=== PATIENT | female | born 1945 | race Hispanic/Latino ===

== ENCOUNTER 2018-04-15 11:30 | Inpatient (IN) | payer MEDICAID, MEDICARE ==
[2018-04-15] MEDS ORDERED: BENADRYL IV ONE (12:33)
[2018-04-15] MEDS ORDERED: REGLAN IV ONE (12:33)
[2018-04-15] MEDS ORDERED: TYLENOL PO ONE (12:33)
--- NOTE | 2018-04-15 12:35 | Emergency Department Report ---
ED Headache HPI - General Chief Complaint: Headache Stated Complaint: SEVERE HEADACHE Time Seen by Provider: 04/15/18 12:14 Source: patient, RN notes reviewed Exam Limitations: no limitations - History of Present Illness Initial Comments: This is a 72-year-old female who is unknown to this provider previously. 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 nAton Chan. Patient presents to the ER with a complaint of headache, dizziness and near syncope. Her headache started 5 days ago, and it was bifrontal and bitemporal. The headache radiates to the occipital region. It is not sudden or thunderclap in nature, it did not reach maximal intensity within an hour, and it is not the most intense or worse headache of her life. She denies claudication, and pain with chewing, and denies change in visual acuity. She denies neck pain, chest pain, abdominal pain, shortness of breath, urinary symptoms. She admits to intermittent tinnitus, although cannot describe which side/ear she is experiencing it in. She also describes sensation of almost passing out which she cannot further describe, and also denies DVT, pulmonary embolus risk factors. Timing/Duration: waxing and waning, other (5 days) Quality: moderate Head Injury Location: frontal, temporal Recent Head Trauma: no recent headache/trauma, occasional headaches Associated Symptoms: loss of consciousness, vision changes, weakness. denies: confusion, fatigue, facial pain, fever/chills, flushing, nausea/vomiting, nasal congestion, nasal drainage, numbness in legs/feet, rash, seizures, sinus infection, stiff neck Allergies/Adverse Reactions: Allergies No Known Allergies Allergy (Verified 07/24/13 19:05) Home Medications: Ambulatory Orders Aspirin [Aspirin BABY CHEW TAB] 81 mg PO DAILY 07/28/13 Olmesartan (Nf) [Benicar] 20 mg PO QDAY 07/28/13 Chlorthalidone [Thalitone] 25 mg PO QDAY 04/15/18 Diltiazem HCl [Diltiazem ER] 240 mg PO QDAY 04/15/18 ED Review of Systems ROS: Stated complaint: SEVERE HEADACHE Other details as noted in HPI Constitutional: denies: fever Eyes: eye discharge. denies: eye pain ENT: denies: epistaxis Respiratory: denies: shortness of breath Cardiovascular: syncope. denies: chest pain Gastrointestinal: denies: abdominal pain Genitourinary: denies: urgency Neurological: weakness Psychiatric: anxiety ED Past Medical Hx - Past Medical History Previous Medical History?: Yes Hx Hypertension: Yes Hx Psychiatric Treatment: Yes Hx HIV: No Additional medical history: high cholesterol - Surgical History Past Surgical History?: Yes Additional Surgical History: Cardiac cath x 2, Tubal Ligation - Social History Smoking Status: Never Smoker Substance Use Type: Alcohol - Medications Home Medications: Home Medications Medication Instructions Recorded Confirmed Last Taken Type Aspirin [Aspirin BABY CHEW TAB] 81 mg PO DAILY 07/28/13 04/15/18 07/13/17 History Olmesartan (Nf) [Benicar] 20 mg PO QDAY 07/28/13 04/15/18 07/13/17 History Chlorthalidone [Thalitone] 25 mg PO QDAY 04/15/18 04/15/18 Unknown History Diltiazem HCl [Diltiazem ER] 240 mg PO QDAY 04/15/18 04/15/18 Unknown History ED Physical Exam - General Limitations: No Limitations General appearance: alert, in no apparent distress - Head Head exam: Present: atraumatic, normocephalic - Eye Eye exam: Present: normal appearance, EOMI, other (visual acuity intact to finger counting, color perception, reading at a close distance). Absent: nystagmus - ENT ENT exam: Present: normal exam, normal orophraynx, mucous membranes moist, TM's normal bilaterally, normal external ear exam, other (there is no mastoid tenderness.) - Neck Neck exam: Present: normal inspection, full ROM. Absent: tenderness, meningismus - Respiratory Respiratory exam: Present: normal lung sounds bilaterally. Absent: respiratory distress - Cardiovascular Cardiovascular Exam: Present: regular rate, normal rhythm, normal heart sounds. Absent: bradycardia, tachycardia, irregular rhythm, systolic murmur, diastolic murmur, rubs, gallop - GI/Abdominal GI/Abdominal exam: Present: soft, normal bowel sounds. Absent: distended, tenderness, guarding, rebound, rigid, pulsatile mass - Extremities Exam Extremities exam: Present: normal inspection, full ROM, normal capillary refill. Absent: pedal edema, joint swelling, calf tenderness - Back Exam Back exam: Present: normal inspection, full ROM. Absent: tenderness, CVA tenderness (R), paraspinal tenderness, vertebral tenderness - Neurological Exam Neurological exam: Present: alert (there is no temporal tenderness. There is no jaw claudication), oriented X3 (there is no past pointing. Normal heel-to- hill. Negative pronator drift.), CN II-XII intact, other (Extraocular movements intact. Tongue midline. No facial droop. Facial sensation intact to light touch in the V1, V2, V3 distribution bilaterally. 5 and 5 strength in 4 extremities.. Sensation is intact to light touch in 4 extremities.). Absent : motor sensory deficit - Psychiatric Psychiatric exam: Present: normal affect, normal mood - Skin Skin exam: Present: warm, dry, intact, normal color. Absent: rash ED Course Vital Signs 04/15/18 04/15/18 04/15/18 11:58 12:00 12:10 Temperature 98.1 F Pulse Rate 61 67 73 Respiratory 16 14 15 Rate Blood Pressure 178/73 172/77 Blood Pressure 172/77 [Left] O2 Sat by Pulse 98 97 98 Oximetry 04/15/18 04/15/18 04/15/18 12:15 12:30 12:45 Temperature Pulse Rate 73 75 76 Respiratory 13 15 9 L Rate Blood Pressure 177/87 171/76 193/80 Blood Pressure [Left] O2 Sat by Pulse 98 98 98 Oximetry 04/15/18 04/15/18 04/15/18 13:00 13:10 13:15 Temperature Pulse Rate 65 76 Respiratory 10 L 18 11 L Rate Blood Pressure 193/80 193/80 Blood Pressure [Left] O2 Sat by Pulse 99 99 Oximetry 04/15/18 04/15/18 04/15/18 13:30 13:45 14:00 Temperature Pulse Rate 65 68 76 Respiratory 14 16 10 L Rate Blood Pressure 171/72 169/68 169/68 Blood Pressure [Left] O2 Sat by Pulse 92 95 97 Oximetry 04/15/18 04/15/18 04/15/18 14:10 14:15 14:30 Temperature Pulse Rate 75 72 Respiratory 16 20 6 L Rate Blood Pressure 145/80 155/61 Blood Pressure [Left] O2 Sat by Pulse 97 96 Oximetry 04/15/18 14:45 Temperature Pulse Rate 65 Respiratory 11 L Rate Blood Pressure 147/66 Blood Pressure [Left] O2 Sat by Pulse 95 Oximetry ED Medical Decision Making - Lab Data Result diagrams: 04/15/18 12:52 04/15/18 12:52 - EKG Data -: EKG Interpreted by Me EKG shows normal: sinus rhythm - EKG Data When compared to previous EKG there are: previous EKG unavailable 04/15/18 17:34 Sinus, 67 bpm, borderline left axis deviation, poor R-wave progression, borderline high left ventricular voltage, QTC within normal limits, abnormal EKG , not a STEMI - Radiology Data Radiology results: report reviewed, image reviewed Noncontrast CT scan of the brain is negative for acute disease - Medical Decision Making Differential diagnosis, including but not limited to: Migraine headache, tension headache, cluster headache, orthostasis, vagal event, structural cardiac disease, acute coronary syndrome, electrolyte derangement, transient ischemic attack Assessment and plan: 72-year-old female with headache that is not historically consistent or suggestive of hemorrhagic stroke, subarachnoid hemorrhage, or temporal arteritis, with concomitant nonspecific blurry vision, dizziness, and near syncope. Symptoms have been present for over 4 days, and therefore not a TPA candidate. She has an NIH score of 0, and does not require emergent endovascular imaging at this time. The headache will be treated symptomatically, she has no DVT or pulmonary embolus risk factors, however given her advanced age and nonspecific symptoms, she will be admitted for further evaluation and management. Case was presented to the Hospital physician, Dr. Moralez, who accepted the patient to his service. Critical care attestation.: If time is entered above; I have spent that time in minutes in the direct care of this critically ill patient, excluding procedure time. ED Disposition Clinical Impression: Near syncope, Dizziness, Headache Disposition: 09 OP ADMIT IP TO THIS HOSP Is pt being admited?: Yes Does the pt Need Aspirin: Yes Condition: Good Time of Disposition: 14:30 (presented to Dr Moralez) - Assessment Assessment Interval: Baseline - Level of Consciousness 1a. Level of Consciousness: alert - LOC Questions 1b. LOC Questions: answers correctly - LOC Command 1c. LOC Commands: performs tasks correctly - Best Gaze 2. Best Gaze: normal - Visual 3. Visual: no visual loss - Facial Palsy 4. Facial Palsy: normal symmetrical movement - Motor Arm 5b. Motor Arm Right: no drift 5a. Motor Arm Left: no drift - Motor Leg 6a. Motor Leg Left: no drift 6b. Motor Leg Right: no drift - Limb Ataxia 7. Limb Ataxia: absent - Sensory 8. Sensory: normal - Best Language 9. Best Language: no aphasia - Dysarthria 10. Dysarthria: normal - Extinction and Inattention 11. Extinction/Inattention: no abnormality - Scoring Total Score: 0 Stroke Severity: No Stroke Symptoms
[2018-04-15 13:13] LABS: Basophils # (Auto) 0.1 K/mm3 (0.0-0.1); Basophils % (Auto) 0.9 % (0.0-1.8); Eosinophils # (Auto) 0.1 K/mm3 (0.0-0.4); Eosinophils % (Auto) 0.7 % (0.0-4.3); Hematocrit 42.4 % (30.3-42.9); Hemoglobin 14.1 gm/dl (10.1-14.3); Lymphocytes # (Auto) 1.5 K/mm3 (1.2-5.4); Lymphocytes % (Auto) 18.8 % (13.4-35.0); Mean Corpuscular HGB Conc 33 % (30-34); Mean Corpuscular Hemoglobin 30 pg (28-32); Mean Corpuscular Volume 89 fl (79-97); Monocytes # (Auto) 0.7 K/mm3 (0.0-0.8); Monocytes % (Auto) 8.9 % (0.0-7.3); Platelet Count 232 K/mm3 (140-440); Red Blood Count 4.76 M/mm3 (3.65-5.03); Red Cell Distribution Width 15.2 % (13.2-15.2)
[2018-04-15 13:22] LABS: INR 0.84 (0.87-1.13)
[2018-04-15 13:23] LABS: Partial Thromboplastin Time 25.4 Sec. (24.2-36.6); Thrombin Time 16.2 Sec. (15.1-19.6)
[2018-04-15 13:27] LABS: Creatine Kinase MB 2.6 ng/mL (0.0-4.0)
[2018-04-15 13:28] LABS: Alanine Aminotransferase 21 units/L (7-56); Albumin 4.5 g/dL (3.9-5); BUN/Creatinine Ratio 20; Blood Urea Nitrogen 14 mg/dL (7-17); Calcium 9.2 mg/dL (8.4-10.2); Hemolysis Index 2
--- NOTE | 2018-04-15 14:00 | Cat Scan Report ---
CT HEAD WITHOUT CONTRAST: HISTORY: Stroke symptoms. TECHNIQUE: Sequential 2.5mm CT images. COMPARISON: none. FINDINGS: Cerebral Parenchyma: Within normal limits. Cerebellum: Within normal limits. Brainstem: Within normal limits. Ventricles: Normal. Sella: Normal. Extra-axial spaces: Normal. Basal Cisterns: Normal. Intracranial Hemorrhage: None. Midline Shift: None. Calvarium: Normal. Sinuses: Normal. Mastoid Air Cells: Normal. Visualized Orbits: Normal. IMPRESSION: Cranial CT scan within normal limits.
[2018-04-15] MEDS ORDERED: BABY ASPIRIN PO ONE (14:15)
--- NOTE | 2018-04-15 15:49 | History and Physical Report ---
History of Present Illness Date of examination: 04/15/18 Date of admission: 04/15/2018 Chief complaint: Chief complaint: Severe dizziness Nearly passed out few hours ago History of present illness: History of Present Illness: 72-year-old with history of hypertension, hyperlipidemia , asthma and depression comes in for severe dizziness of one day duration. Also nearly passed out this afternoon. Did not lose consciousness. No fever no chills no shortness of breath. No focal deficits. No chest pain. No recent travel. Past Medical History Previous Medical History?: Yes Hx Hypertension: Yes Hx Psychiatric Treatment: Yes high cholesterol And GERD Surgical History Past Surgical History?: Yes Additional Surgical History: Cardiac cath x 2, Tubal Ligation Social History Smoking Status: Never Smoker Substance Use Type: Alcohol Family history HTN Medications Home Medications: Home Medications Medication Instructions Recorded Confirmed Last Taken Type Albuterol Sulfate [Ventolin HFA] 2 puff IH Q4H PRN #1 [email or web address] 07/28/13 Unknown Rx Aspirin [Aspirin BABY CHEW TAB] 81 mg PO DAILY 07/28/13 07/13/17 07/13/17 History Fluticasone Propionate [Flonase] 16 gm NS PRN 07/28/13 07/13/17 Unknown History Olmesartan (Nf) [Benicar] 20 mg PO QDAY 07/28/13 07/13/17 07/13/17 History Triamter/Hctz 37.5-25 mg 1 tab PO QDAY 07/28/13 07/13/17 07/13/17 History [Maxzide-25] Multivit with Calcium,Iron,Min 1 each PO DAILY 07/13/17 07/13/17 07/13/17 History [Multiple Vitamins For Women] Pantoprazole [Protonix TAB] 40 mg PO QDAY #30 tablet 07/14/17 Unknown Rx oxyCODONE /ACETAMINOPHEN [Percocet 1 tab PO Q6H PRN #12 tablet 07/14/17 Unknown Rx 5/325 mg] Medications and Allergies Allergies Allergy/AdvReac Type Severity Reaction Status Date / Time No Known Allergies Allergy Verified 07/24/13 19:05 Home Medications Medication Instructions Recorded Confirmed Last Taken Type Aspirin [Aspirin BABY CHEW TAB] 81 mg PO DAILY 07/28/13 04/15/18 07/13/17 History Olmesartan (Nf) [Benicar] 20 mg PO QDAY 07/28/13 04/15/18 07/13/17 History Chlorthalidone [Thalitone] 25 mg PO QDAY 04/15/18 04/15/18 Unknown History Diltiazem HCl [Diltiazem ER] 240 mg PO QDAY 04/15/18 04/15/18 Unknown History Exam - Constitutional Vitals: Temp Pulse Resp BP Pulse Ox 98.1 F 65 11 L 147/66 95 04/15/18 12:10 04/15/18 14:45 04/15/18 14:45 04/15/18 14:45 04/15/18 14:45 General appearance: Present: no acute distress, well-nourished - EENT Eyes: Present: PERRL ENT: hearing intact, clear oral mucosa - Neck Neck: Present: supple, normal ROM - Respiratory Respiratory effort: normal Respiratory: bilateral: CTA - Cardiovascular Heart rate: 67 Rhythm: regular Heart Sounds: Present: S1 & S2. Absent: rub, click - Extremities Extremities: no ischemia, pulses intact, pulses symmetrical, No edema Peripheral Pulses: within normal limits - Abdominal General gastrointestinal: Present: soft, non-tender, non-distended, normal bowel sounds Female genitourinary: Present: normal - Rectal Rectal Exam: deferred - Integumentary Integumentary: Present: clear, warm, dry - Musculoskeletal Musculoskeletal: gait normal, strength equal bilaterally - Psychiatric Psychiatric: appropriate mood/affect, intact judgment & insight - Neurologic Neurologic: CNII-XII intact, moves all extremities - Allied Health Allied health notes reviewed: nursing, case management Results - Labs CBC & Chem 7: 04/15/18 12:52 04/15/18 12:52 Labs: Laboratory Last Values WBC 8.0 K/mm3 (4.5-11.0) 04/15/18 12:52 RBC 4.76 M/mm3 (3.65-5.03) 04/15/18 12:52 Hgb 14.1 gm/dl (10.1-14.3) 04/15/18 12:52 Hct 42.4 % (30.3-42.9) 04/15/18 12:52 MCV 89 fl (79-97) 04/15/18 12:52 MCH 30 pg (28-32) 04/15/18 12:52 MCHC 33 % (30-34) 04/15/18 12:52 RDW 15.2 % (13.2-15.2) 04/15/18 12:52 Plt Count 232 K/mm3 (140-440) 04/15/18 12:52 Lymph % (Auto) 18.8 % (13.4-35.0) 04/15/18 12:52 [place] % (Auto) 8.9 % (0.0-7.3) H 04/15/18 12:52 Eos % (Auto) 0.7 % (0.0-4.3) 04/15/18 12:52 Baso % (Auto) 0.9 % (0.0-1.8) 04/15/18 12:52 Lymph # 1.5 K/mm3 (1.2-5.4) 04/15/18 12:52 [place] # 0.7 K/mm3 (0.0-0.8) 04/15/18 12:52 Eos # 0.1 K/mm3 (0.0-0.4) 04/15/18 12:52 Baso # 0.1 K/mm3 (0.0-0.1) 04/15/18 12:52 Seg Neutrophils % 70.7 % (40.0-70.0) H 04/15/18 12:52 Seg Neutrophils # 5.6 K/mm3 (1.8-7.7) 04/15/18 12:52 PT 11.9 Sec. (12.2-14.9) L 04/15/18 12:52 INR 0.84 (0.87-1.13) L 04/15/18 12:52 APTT 25.4 Sec. (24.2-36.6) 04/15/18 12:52 Thrombin Time 16.2 Sec. (15.1-19.6) 04/15/18 12:52 Sodium 133 mmol/L (137-145) L 04/15/18 12:52 Potassium 3.7 mmol/L (3.6-5.0) 04/15/18 12:52 Chloride 93.2 mmol/L (98-107) L 04/15/18 12:52 Carbon Dioxide 29 mmol/L (22-30) 04/15/18 12:52 Anion Gap 15 mmol/L 04/15/18 12:52 BUN 14 mg/dL (7-17) 04/15/18 12:52 Creatinine 0.7 mg/dL (0.7-1.2) 04/15/18 12:52 Estimated GFR > 60 ml/min 04/15/18 12:52 BUN/Creatinine Ratio 20 % 04/15/18 12:52 Glucose 109 mg/dL (65-100) H 04/15/18 12:52 POC Glucose 117 (70-105) H 04/15/18 12:47 Calcium 9.2 mg/dL (8.4-10.2) 04/15/18 12:52 Total Bilirubin 0.50 mg/dL (0.1-1.2) 04/15/18 12:52 AST 31 units/L (5-40) 04/15/18 12:52 ALT 21 units/L (7-56) 04/15/18 12:52 Alkaline Phosphatase 95 units/L (35-129) 04/15/18 12:52 Total Creatine Kinase 58 units/L (30-135) 04/15/18 12:52 CK-MB (CK-2) 2.6 ng/mL (0.0-4.0) 04/15/18 12:52 CK-MB (CK-2) Rel Index 4.4 (0-4) H 04/15/18 12:52 Troponin T < 0.010 ng/mL (0.00-0.029) 04/15/18 12:52 Total Protein 7.4 g/dL (6.3-8.2) 04/15/18 12:52 Albumin 4.5 g/dL (3.9-5) 04/15/18 12:52 Albumin/Globulin Ratio 1.6 % 04/15/18 12:52 - Imaging and Cardiology EKG: report reviewed (normal sinus rhythm 67/m abnormal R wave progression no acute ST-T wave changes) CT Scan - head: report reviewed (no acute findings) Assessment and Plan Advance Directives: Yes (full code) VTE prophylaxis?: Chemical Plan of care discussed with patient/family: Yes - Patient Problems (1) Near syncope Current Visit: Yes Status: Acute Plan to address problem: Syncope workup Carotid duplex scan Lexiscan a morning Echocardiogram (2) Hypertension Current Visit: Yes Status: Chronic Qualifiers: Hypertension type: essential hypertension Qualified Code(s): I10 - Essential (primary) hypertension Plan to address problem: Continue home antihypertensives (3) GERD (gastroesophageal reflux disease) Current Visit: Yes Status: Chronic Qualifiers: Esophagitis presence: without esophagitis Qualified Code(s): K21.9 - Gastro -esophageal reflux disease without esophagitis Plan to address problem: Continue Protonix (4) Asthma Current Visit: Yes Status: Chronic Qualifiers: Asthma severity: mild Plan to address problem: Bronchodilators when necessary (5) Hyponatremia Current Visit: Yes Status: Acute Plan to address problem: IV normal saline for now (6) DVT prophylaxis Current Visit: No Status: Acute Plan to address problem: Lovenox 40 mg subcutaneous daily
[2018-04-15] MEDS ORDERED: SODIUM CHLORIDE FLUSH SYRINGE 10 ML IV PRN ×2 (15:55→16:45)
[2018-04-15] MEDS ORDERED: AMBIEN PO PRN (15:55)
[2018-04-15] MEDS ORDERED: ZOFRAN IV PRN ×2 (15:55→16:45)
[2018-04-15] MEDS ORDERED: DILAUDID IV PRN (15:55)
[2018-04-15] MEDS ORDERED: TYLENOL PO PRN ×2 (15:55→16:45)
[2018-04-15] MEDS ORDERED: MORPHINE IV PRN (15:55)
[2018-04-15] MEDS ORDERED: PERCOCET 5/325 PO PRN (15:55)
[2018-04-15] MEDS ORDERED: NON-FORMULARY (Diltiazem Hcl [Diltiazem Er] 240 MG) PO SCH (16:00)
[2018-04-15] MEDS ORDERED: NON-FORMULARY (Olmesartan (Nf) 20 MG) PO SCH (16:00)
[2018-04-15] MEDS ORDERED: NACL 0.9% 1000 ML 1,000 ML ONE (16:46)
[2018-04-15] MEDS: NACL 0.9% 1000 ML 1,000 ML IV SCH (17:00)
[2018-04-15] MEDS ORDERED: COZAAR PO SCH (18:00)
[2018-04-15] MEDS: PROTONIX PO SCH (18:44)
[2018-04-15] MEDS: CARDIZEM CD PO SCH (18:44)
[2018-04-15] MEDS: THALITONE PO SCH (19:12)
[2018-04-15] MEDS: HEPARIN SUB-Q SCH (21:40)
[2018-04-15] MEDS ORDERED: SODIUM CHLORIDE FLUSH SYRINGE 10 ML IV SCH ×2 (22:00)
[2018-04-15] MEDS ORDERED: LOVENOX SUB-Q SCH (22:00)
[2018-04-16 06:14] LABS: Basophils % (Auto) 0.6 % (0.0-1.8); Eosinophils # (Auto) 0.1 K/mm3 (0.0-0.4); Hematocrit 41.1 % (30.3-42.9); Hemoglobin 13.6 gm/dl (10.1-14.3); Lymphocytes # (Auto) 1.8 K/mm3 (1.2-5.4); Lymphocytes % (Auto) 26.7 % (13.4-35.0); Mean Corpuscular HGB Conc 33 % (30-34); Mean Corpuscular Hemoglobin 30 pg (28-32); Mean Corpuscular Volume 89 fl (79-97); Monocytes # (Auto) 0.6 K/mm3 (0.0-0.8); Monocytes % (Auto) 8.8 % (0.0-7.3); Platelet Count 223 K/mm3 (140-440); Red Blood Count 4.61 M/mm3 (3.65-5.03); Red Cell Distribution Width 15.2 % (13.2-15.2)
[2018-04-16 06:40] LABS: Alanine Aminotransferase 18 units/L (7-56); Albumin 3.9 g/dL (3.9-5); BUN/Creatinine Ratio 15; Blood Urea Nitrogen 9 mg/dL (7-17); Calcium 8.9 mg/dL (8.4-10.2); Hemolysis Index 1
[2018-04-16] MEDS: NACL 0.9% 1000 ML 1,000 ML IV SCH (06:47)
[2018-04-16] MEDS ORDERED: LEXISCAN IV ONE ×2 (08:08→08:13)
[2018-04-16 08:42] VITALS: BP 147/62
--- NOTE | 2018-04-16 09:30 | Event Note ---
Date: 04/16/18 Nuclear stress test completed Negative for significant ischemia EF 82% low risk study
[2018-04-16] MEDS ORDERED: BABY ASPIRIN PO SCH (10:00)
[2018-04-16] MEDS: PROTONIX PO SCH (12:43)
[2018-04-16] MEDS: THALITONE PO SCH (12:43)
[2018-04-16] MEDS: HEPARIN SUB-Q SCH (12:43)
[2018-04-16] MEDS: CARDIZEM CD PO SCH (12:44)
--- NOTE | 2018-04-16 16:07 | Discharge Summary ---
Providers - Providers Date of Admission: 04/15/18 15:55 Attending physician: AMELIA MILAN MD Primary care physician: MALLY RODRÍGUEZ MD Hospitalization Condition: Good Hospital course: 72F who pw with near syncope, and dizzyness, she went on to have carotid doppler and stress test which were all wnl. Her symptoms resolved. she was advised to stay cool and well hydrated Diagnosis Dizzyness Near syncope transient autonomic dysfunction htn gerd Hyponatremia Disposition: DC-01 TO HOME OR SELFCARE Time spent for discharge: 33 minutes Core Measure Documentation - Palliative Care Palliative Care/ Comfort Measures: Not Applicable - Core Measures Any of the following diagnoses?: none Exam - Constitutional Vitals: Temp Pulse Resp BP Pulse Ox 98.4 F 85 18 147/62 96 04/16/18 04:03 04/16/18 08:18 04/16/18 14:59 04/16/18 08:18 04/16/18 04:03 General appearance: Present: no acute distress, well-nourished - EENT Eyes: Present: PERRL ENT: hearing intact, clear oral mucosa - Neck Neck: Present: supple, normal ROM - Respiratory Respiratory effort: normal Respiratory: bilateral: CTA - Cardiovascular Heart Sounds: Present: S1 & S2. Absent: rub, click - Extremities Extremities: pulses symmetrical, No edema Peripheral Pulses: within normal limits - Abdominal General gastrointestinal: Present: soft, non-tender, non-distended, normal bowel sounds Female genitourinary: Present: normal - Integumentary Integumentary: Present: clear, warm, dry - Musculoskeletal Musculoskeletal: gait normal, strength equal bilaterally - Psychiatric Psychiatric: appropriate mood/affect, intact judgment & insight - Neurologic Neurologic: CNII-XII intact, moves all extremities Plan Follow up with: PRIMARY CARE, [Primary Care Provider] - 3-5 Days
== END 2018-04-16 16:56 | disposition home or self-care (01) | DRG 74 ==
LOC: ED 11:30 → 4A 15:55
PROVIDERS: ADMIT Internal Medicine; ATTEND Internal Medicine
DX: G90.8 Other disorders of autonomic nervous system (principal); E87.1 Hypo-osmolality and hyponatremia; R55 Syncope and collapse; J45.909 Unspecified asthma, uncomplicated; F32.9 Major depressive disorder, single episode, unspecified; I10 Essential (primary) hypertension; K21.9 Gastro-esophageal reflux disease without esophagitis; E78.00 Pure hypercholesterolemia, unspecified; Z98.51 Tubal ligation status; Z79.82 Long term (current) use of aspirin; Z79.51 Long term (current) use of inhaled steroids; Z79.899 Other long term (current) drug therapy
CPT/HCPCS: 36415; 70450; 78452; 80053; 82550; 82553; 82962; 83036; 84484; 85025; 85610; 85670; 85730; 87116; 93005; 93010; 93017; 93306; 93880; 96365; 96375; A9502; J1200; J1644; J2765; J2785; J7030

== ENCOUNTER 2018-04-27 09:25 | Emergency (ER) | payer MEDICARE ==
[2018-04-27 12:28] VITALS: BP 136/76
--- NOTE | 2018-04-27 14:04 | Emergency Department Report ---
ED General Adult HPI - General Chief complaint: High BP Stated complaint: WEAKNESS Time Seen by Provider: 04/27/18 13:44 Source: EMS Mode of arrival: Stretcher Limitations: No Limitations - History of Present Illness Initial comments: Ms Linton is a 72 year-old woman who presents with hypertension, generalized weakness. Woke up, felt weak. Took her BP and was elevated. Took her BP meds and then came to ED. normotensive on arrival. Feels generally tired. No focal weakness, no tingling. No chest pain. No shortness of breath. Had negative stress test last week. No other complaints. - Related Data Home Medications Medication Instructions Recorded Confirmed Last Taken Aspirin [Aspirin BABY CHEW TAB] 81 mg PO DAILY 07/28/13 04/15/18 07/13/17 Olmesartan (Nf) [Benicar] 20 mg PO QDAY 07/28/13 04/15/18 07/13/17 Chlorthalidone [Thalitone] 25 mg PO QDAY 04/15/18 04/15/18 Unknown Diltiazem HCl [Diltiazem ER] 240 mg PO QDAY 04/15/18 04/15/18 Unknown Allergies Allergy/AdvReac Type Severity Reaction Status Date / Time No Known Allergies Allergy Verified 07/24/13 19:05 ED Review of Systems ROS: Stated complaint: WEAKNESS Other details as noted in HPI Comment: All other systems reviewed and negative ED Past Medical Hx - Past Medical History Previous Medical History?: Yes Hx Hypertension: Yes Hx Psychiatric Treatment: Yes Hx HIV: No Additional medical history: high cholesterol - Surgical History Past Surgical History?: Yes Additional Surgical History: Cardiac cath x 2, Tubal Ligation - Social History Smoking Status: Never Smoker - Medications Home Medications: Home Medications Medication Instructions Recorded Confirmed Last Taken Type Aspirin [Aspirin BABY CHEW TAB] 81 mg PO DAILY 07/28/13 04/15/18 07/13/17 History Olmesartan (Nf) [Benicar] 20 mg PO QDAY 07/28/13 04/15/18 07/13/17 History Chlorthalidone [Thalitone] 25 mg PO QDAY 04/15/18 04/15/18 Unknown History Diltiazem HCl [Diltiazem ER] 240 mg PO QDAY 04/15/18 04/15/18 Unknown History ED Physical Exam - General Limitations: No Limitations General appearance: alert, in no apparent distress - Head Head exam: Present: atraumatic, normocephalic - Eye Eye exam: Present: normal appearance, EOMI - ENT ENT exam: Present: normal exam, mucous membranes moist - Neck Neck exam: Present: normal inspection - Respiratory Respiratory exam: Present: normal lung sounds bilaterally. Absent: respiratory distress, wheezes, rales - Cardiovascular Cardiovascular Exam: Present: regular rate, normal rhythm. Absent: systolic murmur, diastolic murmur, rubs, gallop - GI/Abdominal GI/Abdominal exam: Present: soft. Absent: distended, tenderness, guarding - Extremities Exam Extremities exam: Present: normal inspection. Absent: tenderness - Back Exam Back exam: Present: normal inspection. Absent: tenderness - Neurological Exam Neurological exam: Present: alert, oriented X3 - Psychiatric Psychiatric exam: Present: normal affect, normal mood - Skin Skin exam: Present: warm, dry, intact, normal color. Absent: rash ED Course Vital Signs 04/27/18 04/27/18 10:12 12:28 Temperature 97.7 F 97.6 F Pulse Rate 78 69 Respiratory 18 16 Rate Blood Pressure 135/68 Blood Pressure 136/76 [Left] O2 Sat by Pulse 99 98 Oximetry ED Medical Decision Making - EKG Data 04/27/18 10:41 HR 66, sinus, normal axis, intervals wnl, no ST changes concerning for acute ischemia - Medical Decision Making ms Luis is a 72 year-old woman who presents with hypertension. Normotensive on arrival after taking her BP meds. Normal exam. Able to walk without assistance. EKG non-ischemic, NSR. Please see previous notes for recent work-up including NM and exercise stress tests. Agrees with plan to DC to home with pcp follow-up, care instructions and return precautions. Hypertension responsive to her home meds. Critical care attestation.: If time is entered above; I have spent that time in minutes in the direct care of this critically ill patient, excluding procedure time. ED Disposition Clinical Impression: Hypertension Qualifiers: Hypertension type: unspecified Qualified Code(s): I10 - Essential (primary) hypertension Disposition: DC-01 TO HOME OR SELFCARE Is pt being admited?: No Does the pt Need Aspirin: No Condition: Stable Instructions: Hypertension (ED) Referrals: PRIMARY CARE,MD [Primary Care Provider] - 3-5 Days
== END 2018-04-27 14:09 | disposition home or self-care (01) ==
LOC: ED 09:25
DX: I10 Essential (primary) hypertension (principal); E78.00 Pure hypercholesterolemia, unspecified; Z79.82 Long term (current) use of aspirin; Z98.51 Tubal ligation status
CPT/HCPCS: 93005; 93010; 99283

== ENCOUNTER 2018-11-17 07:07 | Inpatient (IN) | payer MEDICARE, MEDICAID ==
[2018-11-17] MEDS ORDERED: ZOFRAN IV ONE ×2 (07:59→12:04)
[2018-11-17 08:02] LABS: Basophils % (Auto) 0.2 % (0.0-1.8); Eosinophils % (Auto) 0.1 % (0.0-4.3); Hematocrit 39.6 % (30.3-42.9); Hemoglobin 13.3 gm/dl (10.1-14.3); Lymphocytes # (Auto) 1.1 K/mm3 (1.2-5.4); Lymphocytes % (Auto) 8.1 % (13.4-35.0); Mean Corpuscular HGB Conc 34 % (30-34); Mean Corpuscular Volume 88 fl (79-97); Monocytes # (Auto) 0.7 K/mm3 (0.0-0.8); Platelet Count 258 K/mm3 (140-440); Red Blood Count 4.51 M/mm3 (3.65-5.03); Red Cell Distribution Width 13.1 % (13.2-15.2)
[2018-11-17 08:04] LABS: Alanine Aminotransferase 15 units/L (7-56); Albumin 3.9 g/dL (3.9-5); BUN/Creatinine Ratio 12; Blood Urea Nitrogen 7 mg/dL (7-17); Calcium 8.6 mg/dL (8.4-10.2); Hemolysis Index 20
[2018-11-17] MEDS ORDERED: NACL 0.9% 1000 ML 1,000 ML IV ONE (08:20)
[2018-11-17] MEDS ORDERED: MAGNESIUM SULFATE 2GM/50ML 2 GM/50 ML BAG IV ONE (08:20)
[2018-11-17 08:45] LABS: Bacteria,Urine 1+ /HPF (Negative); Bilirubin,Urine NEG (Negative); Blood,Urine SM (Negative); Color,Urine Straw (Yellow); Urobilinogen,Urine < 2.0 mg/dL (<2.0)
--- NOTE | 2018-11-17 08:56 | Emergency Department Report ---
ED N/V/D HPI - General Chief complaint: Nausea/Vomiting/Diarrhea Stated complaint: N/V Time Seen by Provider: 11/17/18 07:17 Source: EMS, old records reviewed (April 2018 echo reviewed, normal EF and grade 1 diastolic dysfunction) Mode of arrival: Stretcher Limitations: No Limitations - History of Present Illness Initial comments: 73-year-old female with a past medical history of hyponatremia, asthma, hypertension, obesity, high cholesterol, autonomic dysfunction, and previous tubal ligation presents to the hospital complaining of nausea, vomiting, d iarrhea, by mouth intolerance since yesterday. Patient complains of lightheaded with generalized weakness and fatigue. She denies melena, hematochezia, hematemesis, fever, sick contacts, recent travel, or recent antibiotic use. Patient complains of a generalized soreness to the abdomen and left calf pain. PMD: Dr. Jacquelyn Adams - Related Data Home Medications Medication Instructions Recorded Confirmed Last Taken Aspirin [Aspirin BABY CHEW TAB] 81 mg PO DAILY 07/28/13 05/05/18 07/13/17 Olmesartan (Nf) [Benicar] 20 mg PO QDAY 07/28/13 05/05/18 07/13/17 Atorvastatin [Lipitor] 80 mg PO DAILY 05/05/18 05/05/18 Unknown Fluticasone [Flonase] 2 sprays INNOSTRIL DAILY 05/05/18 05/05/18 Unknown Previous Rx's Medication Instructions Recorded Last Taken Type Diltiazem HCl [Diltiazem ER] 120 mg PO QDAY #30 cap.er.deg 05/07/18 Unknown Rx HYDROcodone/APAP 5-325 [[place] 1 each PO Q6HR PRN #12 tablet 05/07/18 Unknown Rx 5/325] Allergies Allergy/AdvReac Type Severity Reaction Status Date / Time No Known Allergies Allergy Verified 05/04/18 23:47 ED Review of Systems ROS: Stated complaint: N/V Other details as noted in HPI Comment: All other systems reviewed and negative ED Past Medical Hx - Past Medical History Previous Medical History?: Yes Hx Hypertension: Yes Hx Psychiatric Treatment: Yes Hx Asthma: Yes Hx HIV: No Additional medical history: high cholesterol. Autonomic dysfunction. Hyponatremia - Surgical History Past Surgical History?: Yes Additional Surgical History: Cardiac cath x 2, Tubal Ligation - Social History Smoking Status: Never Smoker - Medications Home Medications: Home Medications Medication Instructions Recorded Confirmed Last Taken Type Aspirin [Aspirin BABY CHEW TAB] 81 mg PO DAILY 07/28/13 05/05/18 07/13/17 History Olmesartan (Nf) [Benicar] 20 mg PO QDAY 07/28/13 05/05/18 07/13/17 History Atorvastatin [Lipitor] 80 mg PO DAILY 05/05/18 05/05/18 Unknown History Fluticasone [Flonase] 2 sprays INNOSTRIL DAILY 05/05/18 05/05/18 Unknown History Diltiazem HCl [Diltiazem ER] 120 mg PO QDAY #30 cap.er.deg 05/07/18 Unknown Rx HYDROcodone/APAP 5-325 [[place] 1 each PO Q6HR PRN #12 tablet 05/07/18 Unknown Rx 5/325] ED Physical Exam - General Limitations: No Limitations - Other Other exam information: General: No limitations, patient is alert in no acute distress Head exam: Atraumatic, normocephalic Eyes exam: Normal appearance ENT: Moist mucous membrane Neck exam: Normal inspection, full range of motion, no meningismus nontender Respiratory exam: Clear to auscultation bilateral, no wheezes, rales, crackles Cardiovascular: Normal rate and rhythm, normal heart sounds Abdomen: Soft, nondistended, mild generalized tenderness to palpation, with normal bowel sounds, no rebound, or guarding Extremity: Full range of motion normal inspection, no leg asymmetry Back: Normal Inspection, full range of motion, no tenderness Neurologic: Alert, oriented x3, cranial nerves intact, no motor or sensory deficit Psychiatric: normal affect, normal mood Skin: Warm, dry, intact ED Course Vital Signs 11/17/18 07:35 Temperature 97.8 F Pulse Rate 94 H Respiratory 16 Rate Blood Pressure 176/94 [Left] O2 Sat by Pulse 99 Oximetry - Consultations Consultation #1: 11/17/18 08:52 Dr Luo (nephrolgy) consulted due to hyponatremia ED Medical Decision Making - Lab Data Result diagrams: 11/17/18 07:30 11/17/18 07:30 Lab Results 11/17/18 11/17/18 11/17/18 Range/Units 07:30 07:30 08:30 WBC 13.2 H (4.5-11.0) K/mm3 RBC 4.51 (3.65-5.03) M/mm3 Hgb 13.3 (10.1-14.3) gm/dl Hct 39.6 (30.3-42.9) % MCV 88 (79-97) fl MCH 30 (28-32) pg MCHC 34 (30-34) % RDW 13.1 L (13.2-15.2) % Plt Count 258 (140-440) K/mm3 Lymph % (Auto) 8.1 L (13.4-35.0) % [place] % (Auto) 5.0 (0.0-7.3) % Eos % (Auto) 0.1 (0.0-4.3) % Baso % (Auto) 0.2 (0.0-1.8) % Lymph # 1.1 L (1.2-5.4) K/mm3 [place] # 0.7 (0.0-0.8) K/mm3 Eos # 0.0 (0.0-0.4) K/mm3 Baso # 0.0 (0.0-0.1) K/mm3 Seg Neutrophils % 86.6 H (40.0-70.0) % Seg Neutrophils # 11.5 H (1.8-7.7) K/mm3 Sodium 119 L* (137-145) mmol/L Potassium 3.2 L (3.6-5.0) mmol/L Chloride 79.7 L (98-107) mmol/L Carbon Dioxide 23 (22-30) mmol/L Anion Gap 19 mmol/L BUN 7 (7-17) mg/dL Creatinine 0.6 L (0.7-1.2) mg/dL Estimated GFR > 60 ml/min BUN/Creatinine Ratio 12 % Glucose 169 H (65-100) mg/dL Calcium 8.6 (8.4-10.2) mg/dL Magnesium 1.30 L (1.7-2.3) mg/dL Total Bilirubin 0.50 (0.1-1.2) mg/dL AST 23 (5-40) units/L ALT 15 (7-56) units/L Alkaline Phosphatase 89 (35-129) units/L Total Protein 6.8 (6.3-8.2) g/dL Albumin 3.9 (3.9-5) g/dL Albumin/Globulin Ratio 1.3 % Lipase 9 L (13-60) units/L Urine Color Straw (Yellow) Urine Turbidity Clear (Clear) Urine pH 7.0 (5.0-7.0) Ur Specific [place] 1.006 (1.003-1.030) Urine Protein 30 mg/dl (Negative) mg/dL Urine Glucose (UA) 50 (Negative) mg/dL Urine Ketones Neg (Negative) mg/dL Urine Blood Sm (Negative) Urine Nitrite Neg (Negative) Urine Bilirubin Neg (Negative) Urine Urobilinogen < 2.0 (<2.0) mg/dL Ur Leukocyte Esterase Neg (Negative) Urine WBC (Auto) 1.0 (0.0-6.0) /HPF Urine RBC (Auto) 4.0 (0.0-6.0) /HPF U Epithel Cells (Auto) 3.0 (0-13.0) /HPF Urine Bacteria (Auto) 1+ (Negative) /HPF - Radiology Data Radiology results: report reviewed CT ABDOMEN PELVIS WITH CONTRAST: HISTORY: Nausea, vomiting and diarrhea. COMPARISON: Noncontrast CT abdomen and pelvis dated 05/05/18. TECHNIQUE: Helical CT in 1.25mm intervals following IV contrast. Sagittal and coronal reconstructions. FINDINGS: Lung bases: Normal. Liver: Normal. Biliary system: Normal. Pancreas: Normal. Spleen: Normal. Kidneys/ureters/bladder: Normal. Adrenal glands: Normal. Aorta: Mild distal calcifications. No aneurysm, stenosis or dissection. Intestines: No evidence for focal inflammation or obstruction. Mild diverticulosis of the distal colon is stable. Appendix: Not confidently identified, correlate with surgical history. Pelvic viscera: Normal. Ascites: None. Adenopathy: None. Musculoskeletal: Mild lumbar spondylosis. IMPRESSION: No acute process is identified in the abdomen or pelvis. - Medical Decision Making Patient had several electrolyte abnormalities. IV potassium for hypokalemia, IV magnesium ordered for hypomagnesemia, IV normal saline ordered for hyponatremia. [employer] Lecturer consulted. Patient treated with Zofran. Morphine IV for pain CT does not show acute abnormality. Hospitalist informed for admission - Differential Diagnosis gastroenteritis, intra-abdominal infection, hyponatremia, electrolyte abnor Critical Care Time: No Critical care attestation.: If time is entered above; I have spent that time in minutes in the direct care of this critically ill patient, excluding procedure time. ED Disposition Clinical Impression: Gastroenteritis, Hyponatremia, Hypokalemia, Hypomagnesemia Disposition: OP ADMIT IP TO THIS HOSP Is pt being admited?: Yes Condition: Stable Time of Disposition: 10:26 (Dr Florez/hosp)
[2018-11-17] MEDS ORDERED: MORPHINE IV ONE (09:48)
--- NOTE | 2018-11-17 09:54 | Cat Scan Report ---
CT ABDOMEN PELVIS WITH CONTRAST: HISTORY: Nausea, vomiting and diarrhea. COMPARISON: Noncontrast CT abdomen and pelvis dated 05/05/18. TECHNIQUE: Helical CT in 1.25mm intervals following IV contrast. Sagittal and coronal reconstructions. FINDINGS: Lung bases: Normal. Liver: Normal. Biliary system: Normal. Pancreas: Normal. Spleen: Normal. Kidneys/ureters/bladder: Normal. Adrenal glands: Normal. Aorta: Mild distal calcifications. No aneurysm, stenosis or dissection. Intestines: No evidence for focal inflammation or obstruction. Mild diverticulosis of the distal colon is stable. Appendix: Not confidently identified, correlate with surgical history. Pelvic viscera: Normal. Ascites: None. Adenopathy: None. Musculoskeletal: Mild lumbar spondylosis. IMPRESSION: No acute process is identified in the abdomen or pelvis.
[2018-11-17] MEDS: KCL 10MEQ/100ML 10 MEQ/100 ML BAG IV SCH ×2 (10:01→11:29)
--- NOTE | 2018-11-17 12:06 | History and Physical Report ---
History of Present Illness Date of examination: 11/17/18 Date of admission: 11/17/18 10:27 Chief complaint: N/V/D History of present illness: 73-year-old female with a past medical history of hyponatremia, asthma, hypertension, obesity, high cholesterol, autonomic dysfunction, and previous tubal ligation presents to the hospital complaining of nausea, vomiting, di arrhea, and poor appetite for the past 4-5 days. Patient complains of lightheaded with generalized weakness and fatigue. She denies melena, hematochezia, hematemesis, fever, sick contacts, recent travel, or recent antibiotic use. Patient complains of a generalized soreness to the abdomen associated with her nausea and vomiting. She denies any cough or cold-like symptoms. The patient reports that she vomited approximately 10 episodes over a 5-6 hour period yesterday. No headache or visual disturbances. PMD: Dr. Jacquelyn Adams Past History Past Medical History: hypertension, hyperlipidemia Past Surgical History: No surgical history Social history: no significant social history Family history: no significant family history Medications and Allergies Allergies Allergy/AdvReac Type Severity Reaction Status Date / Time No Known Allergies Allergy Verified 05/04/18 23:47 Home Medications Medication Instructions Recorded Confirmed Last Taken Type Olmesartan (Nf) [Benicar] 20 mg PO QDAY 07/28/13 11/17/18 07/13/17 History Atorvastatin [Lipitor] 80 mg PO DAILY 05/05/18 11/17/18 Unknown History Chlorthalidone [Thalitone] 12.5 mg PO QDAY 11/17/18 11/17/18 Unknown History Promethazine [Phenergan TAB] 25 mg PO Q6HR PRN 11/17/18 11/17/18 Unknown History Review of Systems All systems: negative Exam - Constitutional Vitals: Temp Pulse Resp BP Pulse Ox 97.8 F 73 16 133/62 99 11/17/18 07:35 11/17/18 11:31 11/17/18 11:31 11/17/18 11:31 11/17/18 11:31 General appearance: Present: no acute distress, well-nourished - EENT Eyes: Present: PERRL ENT: hearing intact, clear oral mucosa - Neck Neck: Present: supple, normal ROM - Respiratory Respiratory effort: normal Respiratory: bilateral: CTA - Cardiovascular Heart Sounds: Present: S1 & S2. Absent: rub, click - Extremities Extremities: pulses symmetrical, No edema Peripheral Pulses: within normal limits - Abdominal General gastrointestinal: Present: soft, non-tender, non-distended, normal bowel sounds Female genitourinary: Present: normal - Integumentary Integumentary: Present: clear, warm, dry - Musculoskeletal Musculoskeletal: gait normal, strength equal bilaterally - Psychiatric Psychiatric: appropriate mood/affect, intact judgment & insight - Neurologic Neurologic: CNII-XII intact, moves all extremities Results - Labs CBC & Chem 7: 11/17/18 07:30 11/17/18 07:30 Labs: Laboratory Last Values WBC 13.2 K/mm3 (4.5-11.0) H 11/17/18 07:30 RBC 4.51 M/mm3 (3.65-5.03) 11/17/18 07:30 Hgb 13.3 gm/dl (10.1-14.3) 11/17/18 07:30 Hct 39.6 % (30.3-42.9) 11/17/18 07:30 MCV 88 fl (79-97) 11/17/18 07:30 MCH 30 pg (28-32) 11/17/18 07:30 MCHC 34 % (30-34) 11/17/18 07:30 RDW 13.1 % (13.2-15.2) L 11/17/18 07:30 Plt Count 258 K/mm3 (140-440) 11/17/18 07:30 Lymph % (Auto) 8.1 % (13.4-35.0) L 11/17/18 07:30 [place] % (Auto) 5.0 % (0.0-7.3) 11/17/18 07:30 Eos % (Auto) 0.1 % (0.0-4.3) 11/17/18 07:30 Baso % (Auto) 0.2 % (0.0-1.8) 11/17/18 07:30 Lymph # 1.1 K/mm3 (1.2-5.4) L 11/17/18 07:30 [place] # 0.7 K/mm3 (0.0-0.8) 11/17/18 07:30 Eos # 0.0 K/mm3 (0.0-0.4) 11/17/18 07:30 Baso # 0.0 K/mm3 (0.0-0.1) 11/17/18 07:30 Seg Neutrophils % 86.6 % (40.0-70.0) H 11/17/18 07:30 Seg Neutrophils # 11.5 K/mm3 (1.8-7.7) H 11/17/18 07:30 Sodium 119 mmol/L (137-145) L* 11/17/18 07:30 Potassium 3.2 mmol/L (3.6-5.0) L 11/17/18 07:30 Chloride 79.7 mmol/L (98-107) L 11/17/18 07:30 Carbon Dioxide 23 mmol/L (22-30) 11/17/18 07:30 Anion Gap 19 mmol/L 11/17/18 07:30 BUN 7 mg/dL (7-17) 11/17/18 07:30 Creatinine 0.6 mg/dL (0.7-1.2) L 11/17/18 07:30 Estimated GFR > 60 ml/min 11/17/18 07:30 BUN/Creatinine Ratio 12 % 11/17/18 07:30 Glucose 169 mg/dL (65-100) H 11/17/18 07:30 Calcium 8.6 mg/dL (8.4-10.2) 11/17/18 07:30 Magnesium 1.30 mg/dL (1.7-2.3) L 11/17/18 07:30 Total Bilirubin 0.50 mg/dL (0.1-1.2) 11/17/18 07:30 AST 23 units/L (5-40) 11/17/18 07:30 ALT 15 units/L (7-56) 11/17/18 07:30 Alkaline Phosphatase 89 units/L (35-129) 11/17/18 07:30 Total Protein 6.8 g/dL (6.3-8.2) 11/17/18 07:30 Albumin 3.9 g/dL (3.9-5) 11/17/18 07:30 Albumin/Globulin Ratio 1.3 % 11/17/18 07:30 Lipase 9 units/L (13-60) L 11/17/18 07:30 Urine Color Straw (Yellow) 11/17/18 08:30 Urine Turbidity Clear (Clear) 11/17/18 08:30 Urine pH 7.0 (5.0-7.0) 11/17/18 08:30 Ur Specific [place] 1.006 (1.003-1.030) 11/17/18 08:30 Urine Protein 30 mg/dl mg/dL (Negative) 11/17/18 08:30 Urine Glucose (UA) 50 mg/dL (Negative) 11/17/18 08:30 Urine Ketones Neg mg/dL (Negative) 11/17/18 08:30 Urine Blood Sm (Negative) 11/17/18 08:30 Urine Nitrite Neg (Negative) 11/17/18 08:30 Urine Bilirubin Neg (Negative) 11/17/18 08:30 Urine Urobilinogen < 2.0 mg/dL (<2.0) 11/17/18 08:30 Ur Leukocyte Esterase Neg (Negative) 11/17/18 08:30 Urine WBC (Auto) 1.0 /HPF (0.0-6.0) 11/17/18 08:30 Urine RBC (Auto) 4.0 /HPF (0.0-6.0) 11/17/18 08:30 U Epithel Cells (Auto) 3.0 /HPF (0-13.0) 11/17/18 08:30 Urine Bacteria (Auto) 1+ /HPF (Negative) 11/17/18 08:30 Assessment and Plan Assessment and plan: Hyponatremia - Nephrology consulted - Give IV fluids, monitor BMP - Hold chlorthalidone Hypertension - Continue home medications and hold chlorthalidone Generalized weakness - PT consult Abdominal pain. CT scan of the abdomen and pelvis negative. Continue to monitor. Nausea, vomiting and diarrhea. Etiology may be secondary to gastroenteritis. Check stool studies. Anti-emetics. Hypokalemia. Replete potassium. Hypomagnesemia. Replete magnesium
[2018-11-17] MEDS ORDERED: ZOFRAN ONE (12:10)
--- NOTE | 2018-11-17 12:43 | Vascular Lab Report ---
FINAL REPORT EXAM: VL VENOUS DUPLEX LE LT HISTORY: left leg pain TECHNIQUE: Grayscale and color and spectral Doppler ultrasound imaging of the bilateral lower extrem ities was performed for the purposes of assessing for deep venous thrombosis. PRIORS: None. FINDINGS: No evidence of deep venous thrombosis is seen within the common femoral through the posterior tibial and peroneal veins. Normal compression and color flow is seen throughout the venous system of the malgorzata ateral lower extremities. Normal augmentation. IMPRESSION: Negative for bilateral lower extremity deep venous thrombosis.
[2018-11-17] MEDS ORDERED: ZOFRAN IV PRN (13:15)
[2018-11-17] MEDS ORDERED: SODIUM CHLORIDE FLUSH SYRINGE 10 ML IV PRN (13:15)
--- NOTE | 2018-11-17 14:06 | Consultation ---
History of Present Illness - Reason for Consult Consult date: 11/17/18 hyponatremia - History of Present Illness This is a 73 year old male who presents to the hospital with a chief complaint of nausea, vomiting and diarrhea since yesterday and also complains of wekaness and calf pain. On evaluation in E.R today patient is noted to be Hyponatremic with a sodium level of 119, Hypokalemic with a potassium level of 3.2 and have Hypomagnesia with a mag level of 1.3. Patient was taking Chlorthalidone at home. We are being consulted for management of this patient's Hyponatremia. Past History Past Medical History: hypertension, hyperlipidemia Past Surgical History: No surgical history Social history: no significant social history Family history: no significant family history Medications and Allergies Allergies Allergy/AdvReac Type Severity Reaction Status Date / Time No Known Allergies Allergy Verified 05/04/18 23:47 Home Medications Medication Instructions Recorded Confirmed Last Taken Type Olmesartan (Nf) [Benicar] 20 mg PO QDAY 07/28/13 11/17/18 07/13/17 History Atorvastatin [Lipitor] 80 mg PO DAILY 05/05/18 11/17/18 Unknown History Chlorthalidone [Thalitone] 12.5 mg PO QDAY 11/17/18 11/17/18 Unknown History Promethazine [Phenergan TAB] 25 mg PO Q6HR PRN 11/17/18 11/17/18 Unknown History Active Meds: Active Medications Acetaminophen (Tylenol) 650 mg PO Q4H PRN PRN Reason: Pain MILD(1-3)/Fever >100.5/BACH Enoxaparin Sodium (Lovenox) 40 mg SUB-Q QDAY@2200 PATRICIA Sodium Chloride (Nacl 0.9% 1000 Ml) 1,000 mls @ 75 mls/hr IV DIRECT PAT[place]ICIA Ondansetron HCl (Zofran) 4 mg IV Q8H PRN PRN Reason: Nausea And Vomiting Sodium Chloride (Sodium Chloride Flush Syringe 10 Ml) 10 ml IV BID PATRICIA Sodium Chloride (Sodium Chloride Flush Syringe 10 Ml) 10 ml IV PRN PRN PRN Reason: LINE FLUSH Review of Systems Constitutional: fatigue, no weight loss, no weight gain, no fever, no chills, no sweats Ears, nose, mouth and throat: no ear pain, no ear discharge, no tinnitis, no decreased hearing, no nose pain, no nasal congestion, no nasal discharge Cardiovascular: edema, shortness of breath, no chest pain, no orthopnea, no palpitations, no rapid/irregular heart beat, no syncope, no lightheadedness Respiratory: shortness of breath, no cough with sputum, no excessive sputum, no hemoptysis, no dyspnea on exertion Gastrointestinal: abdominal pain, nausea, vomiting, diarrhea, change in bowel habits, no constipation, no hematemesis, no coffee ground emesis Genitourinary Female: no dysmenorrhea, no pelvic pain, no flank pain, no menorrhagia, no dysuria, no urinary frequency Rectal: no pain, no incontinence, no bleeding Musculoskeletal: no neck stiffness, no neck pain, no shooting arm pain, no arm numbness/tingling, no low back pain Integumentary: no rash, no pruritis, no redness, no sores, no wounds, no jaundice Neurological: weakness, no head injury, no transient paralysis, no paralysis, no parathesias, no numbness Psychiatric: no anxiety, no memory loss, no change in sleep habits, no sleep disturbances, no insomnia, no hypersomnia, no change in appetite Exam - Vital Signs Vital signs: Vital Signs Temp Pulse Resp BP Pulse Ox 97.8 F 94 H 16 176/94 99 11/17/18 07:35 11/17/18 07:35 11/17/18 07:35 11/17/18 07:35 11/17/18 07:35 - General Appearance General appearance: well-developed, obese, fatigue EENT: ATNC, PERRL, hearing intact, vision intact Neck: Present: neck supple, trachea midline Respiratory: Decreased Breath Sounds Heart: regular, S1S2 Gastrointestinal: Present: normoactive bowel sounds Integumentary: warm and dry Neurologic: alert and oriented x3 Musculoskeletal: Present: joint swelling Results - Lab Results 11/17/18 07:30 11/17/18 07:30 Most recent lab results Calcium 8.6 mg/dL (8.4-10.2) 11/17/18 07:30 Magnesium 1.30 mg/dL (1.7-2.3) L 11/17/18 07:30 Assessment and Plan Hypovolemic Hyponatremia in setting of Diuretic and N/V/D: -Was on Chlorthalidone at home, not being resumed inpatiently due to Hyponatremia -Obtain urine osmo, urine sodium and serum osmo -S/P 500 ml NS bolus this morning at 8:20 a.m -Currently on NS@75 ml/hr. Will obtain STAT sodium level now to assess current sodium level and adjust IVF accordingly -Also obtain serial sodium levels every 4 hours -Strict I/O's monitoring -Seizure precautions -Target rise in sodium level is less than 8 meq in 24 hours Hypokalemia: -Repleted with IV KCL -BMP daily Hypomagnesia: -Repleted with IV Mag Sulfate -Mag level daily Nausea/Vomiting/Dairrhea: -C.Diff toxin-pending -On Zofran -As per primary Hypertension: -Reconcile home meds -No thiazide diuretics for now
[2018-11-17] MEDS: NACL 0.9% 1000 ML 1,000 ML IV SCH (15:55)
[2018-11-17 16:48] LABS: Osmolality,Urine 222 Mosm/kg
[2018-11-17] MEDS: LOVENOX SUB-Q SCH (22:04)
[2018-11-17] MEDS: SODIUM CHLORIDE FLUSH SYRINGE 10 ML IV SCH (22:05)
[2018-11-18 04:34] LABS: Basophils % (Auto) 0.3 % (0.0-1.8); Eosinophils # (Auto) 0.1 K/mm3 (0.0-0.4); Hematocrit 36.5 % (30.3-42.9); Hemoglobin 12.2 gm/dl (10.1-14.3); Lymphocytes # (Auto) 2.6 K/mm3 (1.2-5.4); Lymphocytes % (Auto) 28.1 % (13.4-35.0); Mean Corpuscular HGB Conc 33 % (30-34); Mean Corpuscular Volume 88 fl (79-97); Monocytes # (Auto) 1.1 K/mm3 (0.0-0.8); Monocytes % (Auto) 11.4 % (0.0-7.3); Platelet Count 230 K/mm3 (140-440); Red Blood Count 4.13 M/mm3 (3.65-5.03); Red Cell Distribution Width 13.5 % (13.2-15.2)
[2018-11-18] MEDS: NACL 0.9% 1000 ML 1,000 ML IV SCH (04:53)
[2018-11-18] MEDS: TYLENOL PO PRN ×2 (05:14→21:51)
[2018-11-18 05:26] LABS: BUN/Creatinine Ratio 10; Blood Urea Nitrogen 9 mg/dL (7-17); Calcium 8.4 mg/dL (8.4-10.2); Hemolysis Index 10
[2018-11-18] MEDS: SODIUM CHLORIDE FLUSH SYRINGE 10 ML IV SCH ×2 (09:17→21:44)
--- NOTE | 2018-11-18 09:56 | Progress Note ---
Assessment and Plan Assessment and plan: Hyponatremia - Nephrology following - Give IV fluids, monitor BMP - Hold chlorthalidone - Improved to near normal range. Hypertension - Continue home medications and hold chlorthalidone Generalized weakness Abdominal pain. CT scan of the abdomen and pelvis negative. Continue to monitor. Nausea, vomiting and diarrhea. Etiology may be secondary to gastroenteritis. Check stool studies. Anti-emetics. Hypokalemia. Resolved. Hypomagnesemia. Resolved. Disposition. Likely discharge in a.m. History Interval history: No new issues overnight. Patient states that she's had no further nausea and vomiting 24 hours. No diarrhea. Hospitalist Physical - Constitutional Vitals: Temp Pulse Resp BP Pulse Ox 99.2 F 79 20 111/45 97 11/18/18 07:40 11/18/18 09:17 11/18/18 07:40 11/18/18 09:17 11/18/18 07:40 General appearance: Present: no acute distress, well-nourished - EENT Eyes: Present: PERRL, EOM intact ENT: hearing intact, clear oral mucosa, dentition normal - Neck Neck: Present: supple, normal ROM - Respiratory Respiratory effort: normal Respiratory: bilateral: CTA - Cardiovascular Rhythm: regular Heart Sounds: Present: S1 & S2. Absent: gallop, rub - Extremities Extremities: no ischemia, No edema, Full ROM - Abdominal General gastrointestinal: soft, non-tender, non-distended, normal bowel sounds - Integumentary Integumentary: Present: clear, warm, dry - Neurologic Neurologic: CNII-XII intact, moves all extremities Results - Labs CBC & Chem 7: 11/18/18 03:42 11/18/18 05:33 Labs: Laboratory Last Values WBC 9.2 K/mm3 (4.5-11.0) 11/18/18 03:42 RBC 4.13 M/mm3 (3.65-5.03) 11/18/18 03:42 Hgb 12.2 gm/dl (10.1-14.3) 11/18/18 03:42 Hct 36.5 % (30.3-42.9) 11/18/18 03:42 MCV 88 fl (79-97) 11/18/18 03:42 MCH 30 pg (28-32) 11/18/18 03:42 MCHC 33 % (30-34) 11/18/18 03:42 RDW 13.5 % (13.2-15.2) 11/18/18 03:42 Plt Count 230 K/mm3 (140-440) 11/18/18 03:42 Lymph % (Auto) 28.1 % (13.4-35.0) 11/18/18 03:42 [place] % (Auto) 11.4 % (0.0-7.3) H 11/18/18 03:42 Eos % (Auto) 1.0 % (0.0-4.3) 11/18/18 03:42 Baso % (Auto) 0.3 % (0.0-1.8) 11/18/18 03:42 Lymph # 2.6 K/mm3 (1.2-5.4) 11/18/18 03:42 [place] # 1.1 K/mm3 (0.0-0.8) H 11/18/18 03:42 Eos # 0.1 K/mm3 (0.0-0.4) 11/18/18 03:42 Baso # 0.0 K/mm3 (0.0-0.1) 11/18/18 03:42 Seg Neutrophils % 59.2 % (40.0-70.0) 11/18/18 03:42 Seg Neutrophils # 5.4 K/mm3 (1.8-7.7) 11/18/18 03:42 Sodium 135 mmol/L (137-145) L 11/18/18 05:33 Potassium 3.8 mmol/L (3.6-5.0) 11/18/18 03:42 Chloride 98.3 mmol/L (98-107) 11/18/18 03:42 Carbon Dioxide 25 mmol/L (22-30) 11/18/18 03:42 Anion Gap 18 mmol/L 11/18/18 03:42 BUN 9 mg/dL (7-17) 11/18/18 03:42 Creatinine 0.9 mg/dL (0.7-1.2) 11/18/18 03:42 Estimated GFR > 60 ml/min 11/18/18 03:42 BUN/Creatinine Ratio 10 % 11/18/18 03:42 Glucose 90 mg/dL (65-100) 11/18/18 03:42 Osmolality 281 Mosm/kg 11/18/18 03:42 Calcium 8.4 mg/dL (8.4-10.2) 11/18/18 03:42 Magnesium 2.10 mg/dL (1.7-2.3) 11/18/18 03:42 Total Bilirubin 0.50 mg/dL (0.1-1.2) 11/17/18 07:30 AST 23 units/L (5-40) 11/17/18 07:30 ALT 15 units/L (7-56) 11/17/18 07:30 Alkaline Phosphatase 89 units/L (35-129) 11/17/18 07:30 Total Protein 6.8 g/dL (6.3-8.2) 11/17/18 07:30 Albumin 3.9 g/dL (3.9-5) 11/17/18 07:30 Albumin/Globulin Ratio 1.3 % 11/17/18 07:30 Lipase 9 units/L (13-60) L 11/17/18 07:30 Urine Color Straw (Yellow) 11/17/18 08:30 Urine Turbidity Clear (Clear) 11/17/18 08:30 Urine pH 7.0 (5.0-7.0) 11/17/18 08:30 Ur Specific [place] 1.006 (1.003-1.030) 11/17/18 08:30 Urine Protein 30 mg/dl mg/dL (Negative) 11/17/18 08:30 Urine Glucose (UA) 50 mg/dL (Negative) 11/17/18 08:30 Urine Ketones Neg mg/dL (Negative) 11/17/18 08:30 Urine Blood Sm (Negative) 11/17/18 08:30 Urine Nitrite Neg (Negative) 11/17/18 08:30 Urine Bilirubin Neg (Negative) 11/17/18 08:30 Urine Urobilinogen < 2.0 mg/dL (<2.0) 11/17/18 08:30 Ur Leukocyte Esterase Neg (Negative) 11/17/18 08:30 Urine WBC (Auto) 1.0 /HPF (0.0-6.0) 11/17/18 08:30 Urine RBC (Auto) 4.0 /HPF (0.0-6.0) 11/17/18 08:30 U Epithel Cells (Auto) 3.0 /HPF (0-13.0) 11/17/18 08:30 Urine Bacteria (Auto) 1+ /HPF (Negative) 11/17/18 08:30 Urine Osmolality 222 Mosm/kg 11/17/18 16:02 Urine Sodium 31 mmol/L 11/17/18 16:02
--- NOTE | 2018-11-18 10:33 | Progress Note ---
Assessment and Plan Hypovolemic Hyponatremia in setting of Diuretic and N/V/D: -Sodium level 135 today, sodium is overcorrected -Will D/C IVF -Will give D5W 500 ml bolus x 1 now then start D5W@ 75 ml/hr -Will give Ddavp 1 mcg x 1 dose -On serial sodium levels every 4 hours -Strict I/O's monitoring -Target rise in sodium is 6-8 meq in 24 hours and not more than 10 meq Hypokalemia: -Resolved -BMP daily Hypomagnesia: -Resolved -Mag level daily Nausea/Vomiting/Dairrhea: -C.Diff toxin-pending -On Zofran -As per primary Hypertension: -Adjust regimen as needed -No thiazide diuretics for now Subjective Date of service: 11/18/18 Principal diagnosis: Hyponatremia Interval history: Patient states she is feeling better today. Objective - Vital Signs Vital signs: Vital Signs - 12hr 11/18/18 11/18/18 11/18/18 02:18 07:40 09:17 Temperature 97.6 F 99.2 F Pulse Rate 91 H 78 79 Respiratory 18 20 Rate Blood Pressure 106/42 130/61 Blood Pressure 111/45 [Left] O2 Sat by Pulse 96 97 Oximetry - General Appearance General appearance: well-developed, appears stated age EENT: ATNC, PERRL, hearing intact, vision intact Neck: no JVD, supple Respiratory: Present: Decreased Breath Sounds Cardiology: regular, S1S2 Gastrointestinal: normoactive bowel sounds Integumentary: warm and dry Neurologic: alert and oriented x3 Musculoskeletal: other (mild edema) Psychiatric: mood/affect appropriate, cooperative - Lab 11/18/18 03:42 11/18/18 10:33 Most recent lab results Calcium 8.4 mg/dL (8.4-10.2) 11/18/18 03:42 Magnesium 2.10 mg/dL (1.7-2.3) 11/18/18 03:42 Urine Sodium 31 mmol/L 11/17/18 16:02 Medications & Allergies - Medications Allergies/Adverse Reactions: Allergies No Known Allergies Allergy (Verified 05/04/18 23:47) Home Medications: Home Medications Medication Instructions Recorded Confirmed Last Taken Type Olmesartan (Nf) [Benicar] 20 mg PO QDAY 07/28/13 11/17/18 07/13/17 History Atorvastatin [Lipitor] 80 mg PO DAILY 05/05/18 11/17/18 Unknown History Chlorthalidone [Thalitone] 12.5 mg PO QDAY 11/17/18 11/17/18 Unknown History Promethazine [Phenergan TAB] 25 mg PO Q6HR PRN 11/17/18 11/17/18 Unknown History Active Medications: Generic Name Dose Route Start Last Admin Trade Name Freq PRN Reason Stop Dose Admin Acetaminophen 650 mg 11/17/18 13:15 11/18/18 05:14 Tylenol PO 650 mg Q4H PRN Administration Pain MILD(1-3)/Fever >100.5/BACH Enoxaparin Sodium 40 mg 11/17/18 22:00 11/17/18 22:04 Lovenox SUB-Q 40 mg QDAY@2200 PATRICIA Administration Sodium Chloride 1,000 mls @ 75 mls/hr 11/17/18 14:00 11/18/18 04:53 Nacl 0.9% 1000 Ml IV 75 mls/hr DIRECT PATRICIA Administration Ondansetron HCl 4 mg 11/17/18 13:15 11/17/18 22:05 Zofran IV 4 mg Q8H PRN Administration Nausea And Vomiting Sodium Chloride 10 ml 11/17/18 22:00 11/18/18 09:17 Sodium Chloride Flush Syringe 10 Ml IV Not Given BID PATRICIA Sodium Chloride 10 ml 11/17/18 13:15 Sodium Chloride Flush Syringe 10 Ml IV PRN PRN LINE FLUSH
[2018-11-18] MEDS ORDERED: DDAVP IV ONE ×2 (10:35→11:00)
[2018-11-18] MEDS ORDERED: NACL 0.9% IV ONE (10:35)
[2018-11-18] MEDS ORDERED: D5W 500 ML IV ONE (11:00)
[2018-11-18] MEDS: D5W 1,000 ML IV SCH (12:38)
[2018-11-18] MEDS: LOVENOX SUB-Q SCH (21:43)
[2018-11-19] MEDS: D5W 1,000 ML IV SCH (01:59)
[2018-11-19 04:28] LABS: BUN/Creatinine Ratio 17; Blood Urea Nitrogen 12 mg/dL (7-17); Calcium 8.2 mg/dL (8.4-10.2); Hemolysis Index 8
[2018-11-19] MEDS: SODIUM CHLORIDE FLUSH SYRINGE 10 ML IV SCH ×2 (09:05→21:19)
[2018-11-19] MEDS ORDERED: THALITONE PO SCH (10:00)
[2018-11-19] MEDS ORDERED: NON-FORMULARY (Olmesartan (Nf) 20 MG) PO SCH (10:00)
[2018-11-19] MEDS: APRESOLINE IV SCH ×4 (10:06→21:15)
[2018-11-19] MEDS: COZAAR PO SCH (11:15)
--- NOTE | 2018-11-19 11:57 | Progress Note ---
Assessment and Plan Hypovolemic Hyponatremia in setting of diuretic, nausea, vomiting, and diarrhea: -Serum sodium level was 126 today, yesterday's serum sodium level was 128-135 -Discontinue D5W infusion now which was started for management of overcorrection of hyponatremia -S/p DDAVP 1 mcg x 1 dose -On serial sodium levels every 4 hours -Strict Intake and output -Target rise in sodium 6-8 mEq in 24 hours and not more than 10 mEq within 24 hrs to minimize risk of ODS -Intake= 2750 ml Output= 650 ml ( Net= 2100 ml) -Renal plan d/w Dr Luo Hypokalemia: -Improved -BMP daily Hypomagnesemia: -Improved -Monitor Nausea & Vomiting: Diarrhea: -C.Diff toxin pending -On Zofran -As per primary Essential Hypertension: -Adjust regimen as needed -No thiazide diuretics for now Subjective Date of service: 11/19/18 Principal diagnosis: Hyponatremia Interval history: Pt seen in bed, states she feels tired from lack of sleep, denies shortness of breath, no acute distress. No family at bedside at time of my examination Objective - Vital Signs Vital signs: Vital Signs - 12hr 11/19/18 11/19/18 11/19/18 02:12 07:42 10:00 Temperature 98.4 F 98.0 F Pulse Rate 68 64 Pulse Rate [ 64 From Monitor] Respiratory 18 18 18 Rate Blood Pressure 191/86 180/77 O2 Sat by Pulse 98 99 99 Oximetry 11/19/18 11/19/18 10:06 11:15 Temperature Pulse Rate 72 88 Pulse Rate [ From Monitor] Respiratory Rate Blood Pressure 183/65 155/78 O2 Sat by Pulse Oximetry - General Appearance General appearance: well-developed EENT: ATNC Neck: no JVD Respiratory: Present: Decreased Breath Sounds Cardiology: regular Gastrointestinal: normoactive bowel sounds Integumentary: warm and dry Neurologic: alert and oriented x3 Musculoskeletal: other (no edema to BLE) Psychiatric: cooperative - Lab 11/18/18 03:42 11/19/18 10:04 Most recent lab results Calcium 8.2 mg/dL (8.4-10.2) L 11/19/18 03:58 Magnesium 2.10 mg/dL (1.7-2.3) 11/18/18 03:42 Urine Sodium 31 mmol/L 11/17/18 16:02 Medications & Allergies - Medications Allergies/Adverse Reactions: Allergies No Known Allergies Allergy (Verified 05/04/18 23:47) Home Medications: Home Medications Medication Instructions Recorded Confirmed Last Taken Type Olmesartan (Nf) [Benicar] 20 mg PO QDAY 07/28/13 11/17/18 07/13/17 History Atorvastatin [Lipitor] 80 mg PO DAILY 05/05/18 11/17/18 Unknown History Chlorthalidone [Thalitone] 12.5 mg PO QDAY 11/17/18 11/17/18 Unknown History Promethazine [Phenergan TAB] 25 mg PO Q6HR PRN 11/17/18 11/17/18 Unknown History Active Medications: Generic Name Dose Route Start Last Admin Trade Name Freq PRN Reason Stop Dose Admin Acetaminophen 650 mg 11/17/18 13:15 11/18/18 21:51 Tylenol PO 650 mg Q4H PRN Administration Pain MILD(1-3)/Fever >100.5/BACH Atorvastatin Calcium 80 mg 11/19/18 22:00 Lipitor PO QHS PATRICIA Enoxaparin Sodium 40 mg 11/17/18 22:00 11/18/18 21:43 Lovenox SUB-Q 40 mg QDAY@2200 PATRICIA Administration Hydralazine HCl 10 mg 11/19/18 10:00 11/19/18 10:06 Apresoline IV 10 mg Q4HR PATRICIA Administration Losartan Potassium 50 mg 11/19/18 11:00 11/19/18 11:15 Cozaar PO 50 mg QDAY PATRICIA Administration Ondansetron HCl 4 mg 11/17/18 13:15 11/17/18 22:05 Zofran IV 4 mg Q8H PRN Administration Nausea And Vomiting Sodium Chloride 10 ml 11/17/18 22:00 11/19/18 09:05 Sodium Chloride Flush Syringe 10 Ml IV 10 ml BID PATRICIA Administration Sodium Chloride 10 ml 11/17/18 13:15 11/19/18 10:09 Sodium Chloride Flush Syringe 10 Ml IV 10 ml PRN PRN Administration LINE FLUSH
--- NOTE | 2018-11-19 13:31 | Progress Note ---
Assessment and Plan Assessment and plan: Hyponatremia - Nephrology following - Give IV fluids, monitor BMP - Hold chlorthalidone - Improved to near normal range. Hypertension - Continue home medications and hold chlorthalidone Generalized weakness Abdominal pain. CT scan of the abdomen and pelvis negative. Continue to monitor. Nausea, vomiting and diarrhea. Etiology may be secondary to gastroenteritis. Check stool studies. Anti-emetics. Hypokalemia. Resolved. Hypomagnesmia. Resolved. Disposition. Likely discharge in a.m. History Interval history: No new issues overnight. Hospitalist Physical - Constitutional Vitals: Temp Pulse Resp BP Pulse Ox 98.0 F 88 18 155/78 99 11/19/18 07:42 11/19/18 11:15 11/19/18 10:00 11/19/18 11:15 11/19/18 10:00 General appearance: Present: no acute distress, well-nourished - EENT Eyes: Present: PERRL, EOM intact ENT: hearing intact, clear oral mucosa, dentition normal - Neck Neck: Present: supple, normal ROM - Respiratory Respiratory effort: normal Respiratory: bilateral: CTA - Cardiovascular Rhythm: regular Heart Sounds: Present: S1 & S2. Absent: gallop, rub - Extremities Extremities: no ischemia, No edema, Full ROM - Abdominal General gastrointestinal: soft, non-tender, non-distended, normal bowel sounds - Integumentary Integumentary: Present: clear, warm, dry - Neurologic Neurologic: CNII-XII intact, moves all extremities Results - Labs CBC & Chem 7: 11/18/18 03:42 11/19/18 10:04 Labs: Laboratory Last Values WBC 9.2 K/mm3 (4.5-11.0) 11/18/18 03:42 RBC 4.13 M/mm3 (3.65-5.03) 11/18/18 03:42 Hgb 12.2 gm/dl (10.1-14.3) 11/18/18 03:42 Hct 36.5 % (30.3-42.9) 11/18/18 03:42 MCV 88 fl (79-97) 11/18/18 03:42 MCH 30 pg (28-32) 11/18/18 03:42 MCHC 33 % (30-34) 11/18/18 03:42 RDW 13.5 % (13.2-15.2) 11/18/18 03:42 Plt Count 230 K/mm3 (140-440) 11/18/18 03:42 Lymph % (Auto) 28.1 % (13.4-35.0) 11/18/18 03:42 [place] % (Auto) 11.4 % (0.0-7.3) H 11/18/18 03:42 Eos % (Auto) 1.0 % (0.0-4.3) 11/18/18 03:42 Baso % (Auto) 0.3 % (0.0-1.8) 11/18/18 03:42 Lymph # 2.6 K/mm3 (1.2-5.4) 11/18/18 03:42 [place] # 1.1 K/mm3 (0.0-0.8) H 11/18/18 03:42 Eos # 0.1 K/mm3 (0.0-0.4) 11/18/18 03:42 Baso # 0.0 K/mm3 (0.0-0.1) 11/18/18 03:42 Seg Neutrophils % 59.2 % (40.0-70.0) 11/18/18 03:42 Seg Neutrophils # 5.4 K/mm3 (1.8-7.7) 11/18/18 03:42 Sodium 124 mmol/L (137-145) L 11/19/18 10:04 Potassium 3.7 mmol/L (3.6-5.0) 11/19/18 03:58 Chloride 90.5 mmol/L (98-107) L 11/19/18 03:58 Carbon Dioxide 28 mmol/L (22-30) 11/19/18 03:58 Anion Gap 11 mmol/L 11/19/18 03:58 BUN 12 mg/dL (7-17) 11/19/18 03:58 Creatinine 0.7 mg/dL (0.7-1.2) 11/19/18 03:58 Estimated GFR > 60 ml/min 11/19/18 03:58 BUN/Creatinine Ratio 17 % 11/19/18 03:58 Glucose 108 mg/dL (65-100) H 11/19/18 03:58 Osmolality 281 Mosm/kg 11/18/18 03:42 Calcium 8.2 mg/dL (8.4-10.2) L 11/19/18 03:58 Magnesium 2.10 mg/dL (1.7-2.3) 11/18/18 03:42 Total Bilirubin 0.50 mg/dL (0.1-1.2) 11/17/18 07:30 AST 23 units/L (5-40) 11/17/18 07:30 ALT 15 units/L (7-56) 11/17/18 07:30 Alkaline Phosphatase 89 units/L (35-129) 11/17/18 07:30 Total Protein 6.8 g/dL (6.3-8.2) 11/17/18 07:30 Albumin 3.9 g/dL (3.9-5) 11/17/18 07:30 Albumin/Globulin Ratio 1.3 % 11/17/18 07:30 Lipase 9 units/L (13-60) L 11/17/18 07:30 Urine Color Straw (Yellow) 11/17/18 08:30 Urine Turbidity Clear (Clear) 11/17/18 08:30 Urine pH 7.0 (5.0-7.0) 11/17/18 08:30 Ur Specific [place] 1.006 (1.003-1.030) 11/17/18 08:30 Urine Protein 30 mg/dl mg/dL (Negative) 11/17/18 08:30 Urine Glucose (UA) 50 mg/dL (Negative) 11/17/18 08:30 Urine Ketones Neg mg/dL (Negative) 11/17/18 08:30 Urine Blood Sm (Negative) 11/17/18 08:30 Urine Nitrite Neg (Negative) 11/17/18 08:30 Urine Bilirubin Neg (Negative) 11/17/18 08:30 Urine Urobilinogen < 2.0 mg/dL (<2.0) 11/17/18 08:30 Ur Leukocyte Esterase Neg (Negative) 11/17/18 08:30 Urine WBC (Auto) 1.0 /HPF (0.0-6.0) 11/17/18 08:30 Urine RBC (Auto) 4.0 /HPF (0.0-6.0) 11/17/18 08:30 U Epithel Cells (Auto) 3.0 /HPF (0-13.0) 11/17/18 08:30 Urine Bacteria (Auto) 1+ /HPF (Negative) 11/17/18 08:30 Urine Osmolality 222 Mosm/kg 11/17/18 16:02 Urine Sodium 31 mmol/L 11/17/18 16:02
[2018-11-19] MEDS: TYLENOL PO PRN (21:11)
[2018-11-19] MEDS: LOVENOX SUB-Q SCH (21:12)
[2018-11-20] MEDS: APRESOLINE IV SCH ×6 (02:26→21:11)
--- NOTE | 2018-11-20 07:42 | Progress Note ---
Assessment and Plan Hypovolemic Hyponatremia in setting of diuretic, nausea, vomiting, and diarrhea: -BMP level pending this morning -Most recent serum sodium level was 121 at 2123 yesterday (11/19/18), yesterday's serum sodium level ranged between 121-126 -Pt initially had overcorrection of hyponatremia and was treated with D5W infus ion and DDAVP 1 mcg x 1 dose -D5W infusion stopped on 11/19/18 -Start on 0.9% NS infusion at 50 ml/hr for now -Check serial sodium level every 4 hours -Fluid restriction of 1 liter per day -Strict Intake and output -Target rise in sodium 6-8 mEq in 24 hours and not more than 10 mEq within 24 hrs to minimize risk of ODS -Renal plan d/w Dr Luo Hypokalemia: -Replete as needed -BMP daily Hypomagnesemia: -Replete as needed -Monitor Nausea & Vomiting: Diarrhea: -On Zofran -As per primary Essential Hypertension: -Adjust regimen as needed -No thiazide diuretics for now Subjective Date of service: 11/20/18 Principal diagnosis: Hyponatremia Interval history: Pt seen sitting up on the side of the bed eating breakfast, denies shortness of breath, no acute distress. No family at bedside Objective - Vital Signs Vital signs: Vital Signs - 12hr 11/19/18 11/19/18 11/20/18 21:15 23:29 02:21 Temperature 97.7 F Pulse Rate 73 74 85 Respiratory 18 Rate Blood Pressure 172/75 102/43 Blood Pressure 133/60 [Left] O2 Sat by Pulse 98 Oximetry 11/20/18 11/20/18 11/20/18 02:26 04:53 05:07 Temperature Pulse Rate 83 99 H Respiratory Rate Blood Pressure 102/43 128/58 128/58 Blood Pressure [Left] O2 Sat by Pulse Oximetry - General Appearance General appearance: well-developed EENT: ATNC Neck: no JVD Respiratory: Present: Decreased Breath Sounds Cardiology: regular, S1S2 Gastrointestinal: normoactive bowel sounds, no tenderness Integumentary: warm and dry Neurologic: alert and oriented x3 Musculoskeletal: other (No edema to BLE) Psychiatric: cooperative - Lab 11/18/18 03:42 11/19/18 21:23 Most recent lab results Calcium 8.2 mg/dL (8.4-10.2) L 02/09/19 03:58 Magnesium 2.10 mg/dL (1.7-2.3) 11/18/18 03:42 Urine Sodium 31 mmol/L 11/17/18 16:02 Medications & Allergies - Medications Allergies/Adverse Reactions: Allergies No Known Allergies Allergy (Verified 05/04/18 23:47) Home Medications: Home Medications Medication Instructions Recorded Confirmed Last Taken Type Olmesartan (Nf) [Benicar] 20 mg PO QDAY 07/28/13 11/17/18 07/13/17 History Atorvastatin [Lipitor] 80 mg PO DAILY 05/05/18 11/17/18 Unknown History Chlorthalidone [Thalitone] 12.5 mg PO QDAY 11/17/18 11/17/18 Unknown History Promethazine [Phenergan TAB] 25 mg PO Q6HR PRN 11/17/18 11/17/18 Unknown History Active Medications: Generic Name Dose Route Start Last Admin Trade Name Freq PRN Reason Stop Dose Admin Acetaminophen 650 mg 11/17/18 13:15 11/19/18 21:11 Tylenol PO 650 mg Q4H PRN Administration Pain MILD(1-3)/Fever >100.5/BACH Atorvastatin Calcium 80 mg 11/19/18 22:00 11/19/18 21:10 Lipitor PO 80 mg QHS PATRICIA Administration Enoxaparin Sodium 40 mg 11/17/18 22:00 11/19/18 21:12 Lovenox SUB-Q 40 mg QDAY@2200 PATRICIA Administration Hydralazine HCl 10 mg 11/19/18 10:00 11/20/18 05:07 Apresoline IV Not Given Q4HR PATRICIA Sodium Chloride 1,000 mls @ 50 mls/hr 11/20/18 08:00 Nacl 0.9% 1000 Ml IV DIRECT PATRICIA Losartan Potassium 50 mg 11/19/18 11:00 11/19/18 11:15 Cozaar PO 50 mg QDAY PATRICIA Administration Ondansetron HCl 4 mg 11/17/18 13:15 11/17/18 22:05 Zofran IV 4 mg Q8H PRN Administration Nausea And Vomiting Sodium Chloride 10 ml 11/17/18 22:00 11/19/18 21:19 Sodium Chloride Flush Syringe 10 Ml IV 10 ml BID PATRICIA Administration Sodium Chloride 10 ml 11/17/18 13:15 11/19/18 10:09 Sodium Chloride Flush Syringe 10 Ml IV 10 ml PRN PRN Administration LINE FLUSH
[2018-11-20] MEDS: NACL 0.9% 1000 ML 1,000 ML IV SCH (08:15)
[2018-11-20 09:15] LABS: BUN/Creatinine Ratio 17; Blood Urea Nitrogen 10 mg/dL (7-17); Calcium 8.8 mg/dL (8.4-10.2); Hemolysis Index 7
[2018-11-20] MEDS: SODIUM CHLORIDE FLUSH SYRINGE 10 ML IV SCH (09:15)
[2018-11-20] MEDS: COZAAR PO SCH (09:17)
--- NOTE | 2018-11-20 11:21 | Progress Note ---
Assessment and Plan Assessment and plan: Hyponatremia - Nephrology following - Give IV fluids, monitor BMP - Hold chlorthalidone - Improved to near normal range. Hypertension - Continue home medications and hold chlorthalidone Generalized weakness Abdominal pain. CT scan of the abdomen and pelvis negative. Continue to monitor. Nausea, vomiting and diarrhea. Etiology may be secondary to gastroenteritis. Check stool studies. Anti-emetics. Hypokalemia. Resolved. Hypomagnesmia. Resolved. Disposition. Likely discharge in a.m. History Interval history: No new issues overnight. Hospitalist Physical - Constitutional Vitals: Temp Pulse Resp BP Pulse Ox 97.7 F 85 20 112/58 96 11/20/18 08:18 11/20/18 09:17 11/20/18 08:18 11/20/18 09:17 11/20/18 08:18 General appearance: Present: no acute distress, well-nourished - EENT Eyes: Present: PERRL, EOM intact ENT: hearing intact, clear oral mucosa, dentition normal - Neck Neck: Present: supple, normal ROM - Respiratory Respiratory effort: normal Respiratory: bilateral: CTA - Cardiovascular Rhythm: regular Heart Sounds: Present: S1 & S2. Absent: gallop, rub - Extremities Extremities: no ischemia, No edema, Full ROM - Abdominal General gastrointestinal: soft, non-tender, non-distended, normal bowel sounds - Integumentary Integumentary: Present: clear, warm, dry - Neurologic Neurologic: CNII-XII intact, moves all extremities Results - Labs CBC & Chem 7: 11/18/18 03:42 11/20/18 07:48 Labs: Laboratory Last Values WBC 9.2 K/mm3 (4.5-11.0) 11/18/18 03:42 RBC 4.13 M/mm3 (3.65-5.03) 11/18/18 03:42 Hgb 12.2 gm/dl (10.1-14.3) 11/18/18 03:42 Hct 36.5 % (30.3-42.9) 11/18/18 03:42 MCV 88 fl (79-97) 11/18/18 03:42 MCH 30 pg (28-32) 11/18/18 03:42 MCHC 33 % (30-34) 11/18/18 03:42 RDW 13.5 % (13.2-15.2) 11/18/18 03:42 Plt Count 230 K/mm3 (140-440) 11/18/18 03:42 Lymph % (Auto) 28.1 % (13.4-35.0) 11/18/18 03:42 [place] % (Auto) 11.4 % (0.0-7.3) H 11/18/18 03:42 Eos % (Auto) 1.0 % (0.0-4.3) 11/18/18 03:42 Baso % (Auto) 0.3 % (0.0-1.8) 11/18/18 03:42 Lymph # 2.6 K/mm3 (1.2-5.4) 11/18/18 03:42 [place] # 1.1 K/mm3 (0.0-0.8) H 11/18/18 03:42 Eos # 0.1 K/mm3 (0.0-0.4) 11/18/18 03:42 Baso # 0.0 K/mm3 (0.0-0.1) 11/18/18 03:42 Seg Neutrophils % 59.2 % (40.0-70.0) 11/18/18 03:42 Seg Neutrophils # 5.4 K/mm3 (1.8-7.7) 11/18/18 03:42 Sodium 129 mmol/L (137-145) L D 11/20/18 07:48 Potassium 3.9 mmol/L (3.6-5.0) 11/20/18 07:48 Chloride 91.6 mmol/L (98-107) L 11/20/18 07:48 Carbon Dioxide 25 mmol/L (22-30) 11/20/18 07:48 Anion Gap 16 mmol/L 11/20/18 07:48 BUN 10 mg/dL (7-17) 11/20/18 07:48 Creatinine 0.6 mg/dL (0.7-1.2) L 11/20/18 07:48 Estimated GFR > 60 ml/min 11/20/18 07:48 BUN/Creatinine Ratio 17 % 11/20/18 07:48 Glucose 104 mg/dL (65-100) H 11/20/18 07:48 Osmolality 281 Mosm/kg 11/18/18 03:42 Calcium 8.8 mg/dL (8.4-10.2) 11/20/18 07:48 Magnesium 1.80 mg/dL (1.7-2.3) 11/20/18 07:48 Total Bilirubin 0.50 mg/dL (0.1-1.2) 11/17/18 07:30 AST 23 units/L (5-40) 11/17/18 07:30 ALT 15 units/L (7-56) 11/17/18 07:30 Alkaline Phosphatase 89 units/L (35-129) 11/17/18 07:30 Total Protein 6.8 g/dL (6.3-8.2) 11/17/18 07:30 Albumin 3.9 g/dL (3.9-5) 11/17/18 07:30 Albumin/Globulin Ratio 1.3 % 11/17/18 07:30 Lipase 9 units/L (13-60) L 11/17/18 07:30 Urine Color Straw (Yellow) 11/17/18 08:30 Urine Turbidity Clear (Clear) 11/17/18 08:30 Urine pH 7.0 (5.0-7.0) 11/17/18 08:30 Ur Specific [place] 1.006 (1.003-1.030) 11/17/18 08:30 Urine Protein 30 mg/dl mg/dL (Negative) 11/17/18 08:30 Urine Glucose (UA) 50 mg/dL (Negative) 11/17/18 08:30 Urine Ketones Neg mg/dL (Negative) 11/17/18 08:30 Urine Blood Sm (Negative) 11/17/18 08:30 Urine Nitrite Neg (Negative) 11/17/18 08:30 Urine Bilirubin Neg (Negative) 11/17/18 08:30 Urine Urobilinogen < 2.0 mg/dL (<2.0) 11/17/18 08:30 Ur Leukocyte Esterase Neg (Negative) 11/17/18 08:30 Urine WBC (Auto) 1.0 /HPF (0.0-6.0) 11/17/18 08:30 Urine RBC (Auto) 4.0 /HPF (0.0-6.0) 11/17/18 08:30 U Epithel Cells (Auto) 3.0 /HPF (0-13.0) 02/07/19 08:30 Urine Bacteria (Auto) 1+ /HPF (Negative) 11/17/18 08:30 Urine Osmolality 222 Mosm/kg 11/17/18 16:02 Urine Sodium 31 mmol/L 11/17/18 16:02
[2018-11-20] MEDS: LOVENOX SUB-Q SCH (21:14)
[2018-11-21] MEDS: SODIUM CHLORIDE FLUSH SYRINGE 10 ML IV SCH ×2 (00:28→09:24)
[2018-11-21] MEDS: APRESOLINE IV SCH ×3 (03:21→09:24)
[2018-11-21] MEDS: NACL 0.9% 1000 ML 1,000 ML IV SCH (04:31)
[2018-11-21 08:31] VITALS: BP 127/65
--- NOTE | 2018-11-21 08:55 | Discharge Summary ---
Providers - Providers Date of Admission: 11/17/18 10:27 Date of discharge: 11/21/18 Attending physician: NAI SHAY 11/17/18 08:50 Consult to Physician [CONS] Urgent Comment: Spoke to dr. neely/roel Consulting Provider: CINDY NEELY Physician Instructions: Reason For Exam: hyponatermia 11/18/18 09:56 Physical Therapy Evaluation and Treat [CONS] Routine Comment: Reason For Exam: deconditioning Primary care physician: JACKIE MANCILLA Hospitalization Reason for admission: hyponatremia Condition: Stable Hospital course: This is a 73 year old male who presents to the hospital with a chief complaint of nausea, vomiting and diarrhea and also complained of wekaness. On evaluation in ER, patient was noted to be Hyponatremic with a sodium level of 119, Hypokalemic with a potassium level of 3.2 and have Hypomagnesia with a mag level of 1.3. Patient was taking Chlorthalidone at home. Nephrology was consulted for management of this patient's Hyponatremia. Pt initially had overcorrection of hyponatremia and was treated with D5W infusion and DDAVP 1 mcg x 1 dose. D5W infusion was later stopped on 11/19/18. Normal saline infusion was then initiated and serum sodium returned to normal range. Patient was maintained at Target rise in sodium 6-8 mEq in 24 hours and not more than 10 mEq within 24 hrs to minimize risk of ODS. The potassium and magnesium were repleted. CT scan of the abdomen and pelvis was found to be negative etiology of nausea, vomiting and diarrhea was likely related to gastroenteritis. The patient was seen by physical therapy for the generalized weakness and recommendations were for home health PT. Dedicated discharge time 32 minutes. Disposition: - TO HOME OR SELFCARE Time spent for discharge: 32 - Discharge Diagnoses (1) Gastroenteritis Status: Acute (2) Hypokalemia Status: Acute (3) Hypomagnesemia Status: Acute (4) Hyponatremia Status: Acute Core Measure Documentation - Palliative Care Palliative Care/ Comfort Measures: Not Applicable - Core Measures Any of the following diagnoses?: none Exam - Constitutional Vitals: Temp Pulse Resp BP Pulse Ox 98.7 F 84 20 127/65 97 11/21/18 07:50 11/21/18 08:33 11/21/18 08:33 11/21/18 07:50 11/21/18 08:33 General appearance: Present: no acute distress, well-nourished - EENT Eyes: Present: PERRL ENT: hearing intact, clear oral mucosa - Neck Neck: Present: supple, normal ROM - Respiratory Respiratory effort: normal Respiratory: bilateral: CTA - Cardiovascular Heart Sounds: Present: S1 & S2. Absent: rub, click - Extremities Extremities: pulses symmetrical, No edema Peripheral Pulses: within normal limits - Abdominal General gastrointestinal: Present: soft, non-tender, non-distended, normal bowel sounds Female genitourinary: Present: normal - Integumentary Integumentary: Present: clear, warm, dry - Musculoskeletal Musculoskeletal: gait normal, strength equal bilaterally - Psychiatric Psychiatric: appropriate mood/affect, intact judgment & insight - Neurologic Neurologic: CNII-XII intact, moves all extremities Plan Activity: no restrictions Weight Bearing Status: Full Weight Bearing Diet: regular Special Instructions: home health RN Follow up with: JACKIE MANCILLA MD [Primary Care Provider] - 3-5 Days CINDY NEELY MD [Staff Physician] - 7 Days Prescriptions: Chlorthalidone [Thalitone] 12.5 mg PO QDAY #30 tablet Olmesartan (Nf) [Benicar] 20 mg PO QDAY #30 tablet
[2018-11-21] MEDS: COZAAR PO SCH (09:21)
[2018-11-21] MEDS ORDERED: COLACE PO SCH (10:00)
--- NOTE | 2018-11-21 11:51 | Progress Note ---
Assessment and Plan Hypovolemic Hyponatremia in setting of diuretic, nausea, vomiting, and diarrhea: -resolved -ok to be discharged from renal standpoint, she will be followed in my office in one week with labs -Fluid restriction of 1 liter per day -Strict Intake and output Hypokalemia: -Replete as needed Hypomagnesemia: -Replete as needed -Monitor Nausea & Vomiting: Diarrhea: -On Zofran -As per primary Essential Hypertension: -Adjust regimen as needed -No thiazide diuretics for now Subjective Date of service: 11/21/18 Principal diagnosis: Hyponatremia Interval history: comfortable, ready to go home Objective - Vital Signs Vital signs: Vital Signs - 12hr 11/21/18 11/21/18 11/21/18 01:43 03:21 07:50 Temperature 98.2 F 98.7 F Pulse Rate 96 H 96 H 84 Pulse Rate [ From Monitor] Respiratory 18 20 Rate Blood Pressure 125/63 125/63 127/65 O2 Sat by Pulse 98 97 Oximetry 11/21/18 11/21/18 11/21/18 09:21 09:24 10:00 Temperature Pulse Rate 84 84 Pulse Rate [ 84 From Monitor] Respiratory 20 Rate Blood Pressure 127/65 127/65 O2 Sat by Pulse 97 Oximetry - Lab 11/18/18 03:42 11/21/18 10:32 Most recent lab results Calcium 8.8 mg/dL (8.4-10.2) 11/20/18 07:48 Magnesium 1.80 mg/dL (1.7-2.3) 11/20/18 07:48 Urine Sodium 31 mmol/L 11/17/18 16:02 Medications & Allergies - Medications Allergies/Adverse Reactions: Allergies No Known Allergies Allergy (Verified 05/04/18 23:47) Home Medications: Home Medications Medication Instructions Recorded Confirmed Last Taken Type Atorvastatin [Lipitor] 80 mg PO DAILY 05/05/18 11/17/18 Unknown History Chlorthalidone [Thalitone] 12.5 mg PO QDAY #30 tablet 11/21/18 Unknown Rx Olmesartan (Nf) [Benicar] 20 mg PO QDAY #30 tablet 11/21/18 Unknown Rx Active Medications: Generic Name Dose Route Start Last Admin Trade Name Freq PRN Reason Stop Dose Admin Acetaminophen 650 mg 11/17/18 13:15 11/19/18 21:11 Tylenol PO 650 mg Q4H PRN Administration Pain MILD(1-3)/Fever >100.5/BACH Atorvastatin Calcium 80 mg 11/19/18 22:00 11/20/18 21:13 Lipitor PO 80 mg QHS PATRICIA Administration Docusate Sodium 100 mg 11/21/18 10:00 11/21/18 09:24 Colace PO 100 mg BID PATRICIA Administration Enoxaparin Sodium 40 mg 11/17/18 22:00 11/20/18 21:14 Lovenox SUB-Q 40 mg QDAY@2200 PATRICIA Administration Hydralazine HCl 10 mg 11/19/18 10:00 11/21/18 09:24 Apresoline IV Not Given Q4HR PATRICIA Sodium Chloride 1,000 mls @ 50 mls/hr 11/20/18 08:00 11/21/18 04:31 Nacl 0.9% 1000 Ml IV 50 mls/hr DIRECT PATRICIA Administration Losartan Potassium 50 mg 11/19/18 11:00 11/21/18 09:21 Cozaar PO 50 mg QDAY PATRICIA Administration Ondansetron HCl 4 mg 11/17/18 13:15 11/17/18 22:05 Zofran IV 4 mg Q8H PRN Administration Nausea And Vomiting Sodium Chloride 10 ml 11/17/18 22:00 11/21/18 09:24 Sodium Chloride Flush Syringe 10 Ml IV 10 ml BID PATRICIA Administration Sodium Chloride 10 ml 11/17/18 13:15 11/19/18 10:09 Sodium Chloride Flush Syringe 10 Ml IV 10 ml PRN PRN Administration LINE FLUSH
== END 2018-11-21 12:00 | disposition home health service (06) | DRG 641 ==
LOC: ED 07:07 → 2B-ACE 10:27
PROVIDERS: ADMIT Hospitalist; ATTEND Hospitalist
DX: E87.1 Hypo-osmolality and hyponatremia (principal); K52.9 Noninfective gastroenteritis and colitis, unspecified; E87.6 Hypokalemia; E83.42 Hypomagnesemia; E78.00 Pure hypercholesterolemia, unspecified; J45.909 Unspecified asthma, uncomplicated; I10 Essential (primary) hypertension; E66.9 Obesity, unspecified; Z68.34 Body mass index [BMI] 34.0-34.9, adult; Z98.51 Tubal ligation status; Z79.82 Long term (current) use of aspirin; Z79.899 Other long term (current) drug therapy
CPT/HCPCS: 36415; 74177; 80048; 80053; 81001; 83690; 83735; 83930; 83935; 84295; 84300; 85025; 87116; 93005; 93010; G0378; A9270-GY; J0360; J1650; J2270; J2405; J2597; J3475; J3480; J7030; J7060; J7070; Q9967

== ENCOUNTER 2019-03-11 16:35 | Emergency (ER) | payer MEDICARE ==
--- NOTE | 2019-03-11 17:38 | Emergency Department Report ---
ED General Adult HPI - General Chief complaint: Weakness Stated complaint: HEADACHE Time Seen by Provider: 03/11/19 17:11 Source: patient, EMS Mode of arrival: Stretcher Limitations: No Limitations - History of Present Illness Initial comments: Patient is 73 years old female with history of hypertension and arthritis. Patient brought to the emergency room by her family stating that patient has been having generalized weakness for the last 2-3 days. They also said patient's blood pressure is been fluctuating from high to low. Patient also complaining of back pain and right knee pain which is typical for her arthritis flareup according to the family report. Patient denied any chest pain, shortness of breath, nausea or vomiting. No cough fever or chills. Patient also denied any nausea or vomiting. Patient was admitted here in November 2018 for hyponatremia. - Related Data Home Medications Medication Instructions Recorded Confirmed Last Taken Atorvastatin [Lipitor] 80 mg PO DAILY 05/05/18 11/17/18 Unknown Previous Rx's Medication Instructions Recorded Last Taken Type Chlorthalidone [Thalitone] 12.5 mg PO QDAY #30 tablet 11/21/18 Unknown Rx Olmesartan (Nf) [Benicar] 20 mg PO QDAY #30 tablet 11/21/18 Unknown Rx Allergies Allergy/AdvReac Type Severity Reaction Status Date / Time No Known Allergies Allergy Verified 03/11/19 17:08 ED Review of Systems ROS: Stated complaint: HEADACHE Other details as noted in HPI Comment: All other systems reviewed and negative Constitutional: denies: chills, fever Respiratory: denies: cough, orthopnea, shortness of breath, SOB with exertion, SOB at rest, wheezing Cardiovascular: denies: chest pain Gastrointestinal: denies: abdominal pain, nausea, vomiting, diarrhea, constipation, hematemesis, hematochezia Musculoskeletal: back pain, arthralgia, myalgia Neurological: weakness (generalized). denies: headache, numbness, paresthesias, confusion, abnormal gait ED Past Medical Hx - Past Medical History Previous Medical History?: Yes Hx Hypertension: Yes (10/11/1989) Hx Arthritis: Yes Hx Psychiatric Treatment: Yes Hx Asthma: Yes Hx HIV: No Additional medical history: high cholesterol. Autonomic dysfunction. Hyponatremia - Surgical History Past Surgical History?: Yes Additional Surgical History: Cardiac cath x 2, Tubal Ligation - Social History Smoking Status: Never Smoker Substance Use Type: Alcohol - Medications Home Medications: Home Medications Medication Instructions Recorded Confirmed Last Taken Type Atorvastatin [Lipitor] 80 mg PO DAILY 05/05/18 11/17/18 Unknown History Chlorthalidone [Thalitone] 12.5 mg PO QDAY #30 tablet 11/21/18 Unknown Rx Olmesartan (Nf) [Benicar] 20 mg PO QDAY #30 tablet 11/21/18 Unknown Rx ED Physical Exam - General Limitations: No Limitations General appearance: alert, in no apparent distress - Head Head exam: Present: atraumatic, normocephalic, normal inspection - Eye Eye exam: Present: normal appearance, PERRL - ENT ENT exam: Present: normal exam, normal orophraynx, mucous membranes moist - Neck Neck exam: Present: normal inspection, full ROM. Absent: tenderness, meningismus, lymphadenopathy, thyromegaly - Respiratory Respiratory exam: Present: normal lung sounds bilaterally - Cardiovascular Cardiovascular Exam: Present: regular rate, normal rhythm, normal heart sounds - GI/Abdominal GI/Abdominal exam: Present: soft, normal bowel sounds. Absent: distended, tenderness, guarding, rebound, rigid, organomegaly, mass, bruit, pulsatile mass, hernia - Extremities Exam Extremities exam: Present: normal inspection, full ROM, normal capillary refill - Back Exam Back exam: Present: normal inspection, full ROM. Absent: CVA tenderness (R), CVA tenderness (L) - Neurological Exam Neurological exam: Present: alert, oriented X3, CN II-XII intact, normal gait, reflexes normal. Absent: motor sensory deficit - Psychiatric Psychiatric exam: Present: normal mood - Skin Skin exam: Present: warm, intact, normal color ED Course Vital Signs 03/11/19 03/11/19 03/11/19 17:06 18:21 19:00 Temperature 98.2 F 98 F Pulse Rate 96 H 74 80 Respiratory 16 18 18 Rate Blood Pressure 151/78 Blood Pressure 163/69 151/74 [Right] O2 Sat by Pulse 97 100 98 Oximetry 03/11/19 19:47 Temperature Pulse Rate Respiratory 16 Rate Blood Pressure Blood Pressure [Right] O2 Sat by Pulse Oximetry ED Medical Decision Making - Lab Data Result diagrams: 03/11/19 Unknown 03/11/19 Unknown - EKG Data -: EKG Interpreted by Ia EKG shows normal: sinus rhythm Rate: normal - EKG Data Interpretation: no acute changes - Radiology Data Radiology results: report reviewed Chest x-ray is unremarkable. - Medical Decision Making Patient is 73 years old female with history of hypertension and arthritis. Rachel ent brought to the emergency room by her family stating that patient has been having generalized weakness for the last 2-3 days. They also said patient's blood pressure is been fluctuating from high to low. Patient also complaining of back pain and right knee pain which is typical for her arthritis flareup according to the family report. Patient denied any chest pain, shortness of breath, nausea or vomiting. No cough fever or chills. Patient also denied any nausea or vomiting. Patient was admitted here in November 2018 for hyponatremia. Patient remained stable. EKG with no ST elevation or depression. Troponin is negative. Labs reviewed is unremarkable except for slightly low sodium of 120 80 which patient received a normal saline. I believe the patient blood pressure variation is most likely secondary to her pain from arthritis. Patient received morphine 2 mg and stated that it helped a lot with her pain. I will discharge patient with tramadol and advised to follow-up with her primary care physician in the next 2-3 days and to retained to the ER if symptoms are not improved. Critical care attestation.: If time is entered above; I have spent that time in minutes in the direct care of this critically ill patient, excluding procedure time. ED Disposition Clinical Impression: Weakness, Back pain, Knee pain, right, Hyponatremia Disposition: - TO HOME OR SELFCARE Is pt being admited?: No Condition: Stable Instructions: Weakness (ED), Hyponatremia (ED), Osteoarthritis (ED) Referrals: PRIMARY CARE, [Primary Care Provider] - 3-5 Days
[2019-03-11 17:39] LABS: Basophils # (Auto) 0.1 K/mm3 (0.0-0.1); Basophils % (Auto) 0.6 % (0.0-1.8); Eosinophils # (Auto) 0.1 K/mm3 (0.0-0.4); Eosinophils % (Auto) 1.3 % (0.0-4.3); Hematocrit 43.3 % (30.3-42.9); Hemoglobin 14.4 gm/dl (10.1-14.3); Lymphocytes # (Auto) 1.6 K/mm3 (1.2-5.4); Lymphocytes % (Auto) 16.5 % (13.4-35.0); Mean Corpuscular HGB Conc 33 % (30-34); Mean Corpuscular Volume 89 fl (79-97); Monocytes # (Auto) 0.9 K/mm3 (0.0-0.8); Monocytes % (Auto) 9.4 % (0.0-7.3); Platelet Count 251 K/mm3 (140-440); Red Blood Count 4.85 M/mm3 (3.65-5.03); Red Cell Distribution Width 13.4 % (13.2-15.2)
[2019-03-11 18:01] LABS: Alanine Aminotransferase 23 units/L (7-56); Albumin 4.1 g/dL (3.9-5)
[2019-03-11 18:02] LABS: BUN/Creatinine Ratio 18; Blood Urea Nitrogen 14 mg/dL (7-17); Calcium 9.2 mg/dL (8.4-10.2); Hemolysis Index 38
[2019-03-11 18:05] LABS: Bilirubin,Direct < 0.2 mg/dL (0-0.2)
[2019-03-11 18:45] LABS: Bacteria,Urine 1+ /HPF (Negative); Bilirubin,Urine NEG (Negative); Blood,Urine NEG (Negative); Color,Urine Yellow (Yellow); Protein,Urine <15 mg/dL mg/dL (Negative); Urobilinogen,Urine < 2.0 mg/dL (<2.0)
--- NOTE | 2019-03-11 19:20 | XRay Report ---
PROCEDURE: XR CHEST 1V AP TECHNIQUE: Chest radiograph single view. HISTORY: weakness COMPARISONS: 07/13/2017 . FINDINGS: The cardiomediastinal silhouette appears normal. The lungs are clear. The bones and soft tissues are unremarkable. IMPRESSION: No evidence of acute cardiopulmonary disease. This document is electronically signed by Phylicia Higgins MD., March 11 2019 08:17:58 PM ET
[2019-03-11] MEDS ORDERED: ZOFRAN IV ONE (19:38)
[2019-03-11] MEDS ORDERED: MORPHINE IV ONE (19:38)
[2019-03-11] MEDS ORDERED: NACL 0.9% 500 ML 500 ML IV ONE (19:39)
[2019-03-11] MEDS ORDERED: ZOFRAN ONE (19:41)
[2019-03-11] MEDS ORDERED: MORPHINE ONE (19:42)
[2019-03-11 20:14] VITALS: BP 143/70
== END 2019-03-11 21:13 | disposition home or self-care (01) ==
LOC: ED 16:35
DX: R53.1 Weakness (principal); M54.9 Dorsalgia, unspecified; M25.561 Pain in right knee; E87.1 Hypo-osmolality and hyponatremia; I10 Essential (primary) hypertension; M19.90 Unspecified osteoarthritis, unspecified site; J45.909 Unspecified asthma, uncomplicated
CPT/HCPCS: 36415; 71045; 80048; 80076; 81001; 82550; 83735; 84443; 84484; 85025; 93005; 93010; 96374; 96375; 99285; J2270; J2405; J7040

== ENCOUNTER 2019-03-14 03:10 | Emergency (ER) | payer MEDICARE ==
[2019-03-14] MEDS ORDERED: ASPIRIN PO ONE (03:23)
--- NOTE | 2019-03-14 04:02 | XRay Report ---
PROCEDURE: XR CHEST 1V AP TECHNIQUE: Chest radiograph single view. HISTORY: Chest Pain COMPARISONS: 03/11/2019 . FINDINGS: Heart: Normal. Mediastinum/Vessels: Normal. Lungs/Pleural space: No acute infiltrates or effusions.. Bony thorax: No acute osseous abnormality. Life support devices: None. IMPRESSION: No acute cardiopulmonary abnormality. This document is electronically signed by Ken Summers MD., March 14 2019 05:00:08 AM ET
[2019-03-14 04:15] LABS: Basophils % (Auto) 0.6 % (0.0-1.8); Eosinophils # (Auto) 0.3 K/mm3 (0.0-0.4); Eosinophils % (Auto) 3.7 % (0.0-4.3); Hematocrit 41.6 % (30.3-42.9); Hemoglobin 13.9 gm/dl (10.1-14.3); Lymphocytes # (Auto) 1.8 K/mm3 (1.2-5.4); Lymphocytes % (Auto) 24.8 % (13.4-35.0); Mean Corpuscular HGB Conc 33 % (30-34); Mean Corpuscular Volume 89 fl (79-97); Monocytes # (Auto) 0.8 K/mm3 (0.0-0.8); Monocytes % (Auto) 11.1 % (0.0-7.3); Platelet Count 253 K/mm3 (140-440); Red Blood Count 4.69 M/mm3 (3.65-5.03); Red Cell Distribution Width 13.3 % (13.2-15.2)
[2019-03-14 04:28] LABS: BUN/Creatinine Ratio 15; Blood Urea Nitrogen 12 mg/dL (7-17); Calcium 9.6 mg/dL (8.4-10.2); Hemolysis Index 10
[2019-03-14] MEDS ORDERED: ZOFRAN ODT PO ONE (05:43)
[2019-03-14] MEDS ORDERED: ZOFRAN ODT ONE (05:44)
[2019-03-14] MEDS ORDERED: ASPIRIN ONE (06:41)
[2019-03-14] MEDS ORDERED: NACL 0.9% 1000 ML 1,000 ML IV ONE (06:46)
--- NOTE | 2019-03-14 06:46 | Emergency Department Report ---
ED General Adult HPI - General Chief complaint: Arrhythmia/Palpitations Stated complaint: HTN Time Seen by Provider: 03/14/19 06:18 Source: patient, EMS Mode of arrival: Wheelchair Limitations: No Limitations - History of Present Illness Initial comments: The patient presents to the emergency department with a chief complaint of weakness for the last 7-8 days. The patient was seen in this emergency department Wednesday for a workup for the same chief complaint. Patient states she has not improved since that time. Patient also complains of a mild frontal headache that she describes as achy in nature, nonradiating, and not the worse headache of her life. Patient denies chest pain, shortness breath, or headache. Patient denies any tick bites but does endorse having an insect bite greater than 10 days ago. Patient also complains of chronic right leg pain as well specifically her right knee. Patient states she had an ultrasound 2 months ago to rule out blood clot in that leg. -: Gradual Location: head Radiation: non-radiation Severity scale (0 -10): 3 Quality: aching Consistency: constant Improves with: none Worsens with: none Associated Symptoms: denies other symptoms Treatments Prior to Arrival: none - Related Data Home Medications Medication Instructions Recorded Confirmed Last Taken Atorvastatin [Lipitor] 80 mg PO DAILY 05/05/18 11/17/18 Unknown Previous Rx's Medication Instructions Recorded Last Taken Type Chlorthalidone [Thalitone] 12.5 mg PO QDAY #30 tablet 11/21/18 Unknown Rx Olmesartan (Nf) [Benicar] 20 mg PO QDAY #30 tablet 11/21/18 Unknown Rx Ondansetron [Zofran Odt] 4 mg PO Q8HR PRN #14 tab.rapdis 03/11/19 Unknown Rx traMADol [Ultram 50 MG tab] 50 mg PO Q4HR PRN #14 tablet 03/11/19 Unknown Rx Ibuprofen [Motrin] 800 mg PO Q8HR PRN #30 tablet 03/14/19 Unknown Rx Allergies Allergy/AdvReac Type Severity Reaction Status Date / Time No Known Allergies Allergy Verified 03/11/19 17:08 ED Review of Systems ROS: Stated complaint: HTN Other details as noted in HPI Constitutional: denies: chills, fever Eyes: denies: eye pain, eye discharge, vision change ENT: denies: ear pain, throat pain Respiratory: denies: cough, shortness of breath, wheezing Cardiovascular: denies: chest pain, palpitations Endocrine: no symptoms reported Gastrointestinal: denies: abdominal pain, nausea, diarrhea Genitourinary: denies: urgency, dysuria, discharge Musculoskeletal: denies: back pain, joint swelling, arthralgia Skin: denies: rash, lesions Neurological: weakness. denies: headache, paresthesias Psychiatric: denies: anxiety, depression Hematological/Lymphatic: denies: easy bleeding, easy bruising ED Past Medical Hx - Past Medical History Previous Medical History?: Yes Hx Hypertension: Yes (10/11/1989) Hx Arthritis: Yes Hx Psychiatric Treatment: Yes Hx Asthma: Yes Hx HIV: No Additional medical history: high cholesterol. Autonomic dysfunction. Hyponatremia - Surgical History Past Surgical History?: Yes Additional Surgical History: Cardiac cath x 2, Tubal Ligation - Social History Smoking Status: Never Smoker Substance Use Type: Alcohol - Medications Home Medications: Home Medications Medication Instructions Recorded Confirmed Last Taken Type Atorvastatin [Lipitor] 80 mg PO DAILY 05/05/18 11/17/18 Unknown History Chlorthalidone [Thalitone] 12.5 mg PO QDAY #30 tablet 11/21/18 Unknown Rx Olmesartan (Nf) [Benicar] 20 mg PO QDAY #30 tablet 11/21/18 Unknown Rx Ondansetron [Zofran Odt] 4 mg PO Q8HR PRN #14 tab.rapdis 03/11/19 Unknown Rx traMADol [Ultram 50 MG tab] 50 mg PO Q4HR PRN #14 tablet 03/11/19 Unknown Rx Ibuprofen [Motrin] 800 mg PO Q8HR PRN #30 tablet 03/14/19 Unknown Rx ED Physical Exam - General Limitations: No Limitations General appearance: alert, in no apparent distress - Head Head exam: Present: atraumatic, normocephalic - Eye Eye exam: Present: normal appearance, PERRL, EOMI - ENT ENT exam: Present: mucous membranes dry - Neck Neck exam: Present: normal inspection - Respiratory Respiratory exam: Present: normal lung sounds bilaterally. Absent: respiratory distress - Cardiovascular Cardiovascular Exam: Present: regular rate, normal rhythm. Absent: systolic murmur, diastolic murmur, rubs, gallop - GI/Abdominal GI/Abdominal exam: Present: soft, normal bowel sounds. Absent: distended, tenderness - Extremities Exam Extremities exam: Present: normal inspection - Back Exam Back exam: Present: normal inspection - Neurological Exam Neurological exam: Present: alert, oriented X3, CN II-XII intact. Absent: motor sensory deficit - Psychiatric Psychiatric exam: Present: normal affect, normal mood - Skin Skin exam: Present: warm, dry, intact, normal color. Absent: rash ED Course Vital Signs 03/14/19 03/14/19 03/14/19 03:18 04:35 05:00 Temperature 97.6 F 98 F Pulse Rate 88 72 72 Respiratory 18 16 14 Rate Blood Pressure 162/80 160/72 Blood Pressure 164/71 [Left] O2 Sat by Pulse 98 96 96 Oximetry 03/14/19 03/14/19 07:01 08:00 Temperature Pulse Rate 67 71 Respiratory 14 12 Rate Blood Pressure 169/78 161/70 Blood Pressure [Left] O2 Sat by Pulse 98 97 Oximetry ED Medical Decision Making - Lab Data Result diagrams: 03/14/19 03:35 03/14/19 03:38 Lab Results 03/14/19 03/14/19 03/14/19 Range/Units 03:35 03:38 06:45 WBC 7.3 (4.5-11.0) K/mm3 RBC 4.69 (3.65-5.03) M/mm3 Hgb 13.9 (10.1-14.3) gm/dl Hct 41.6 (30.3-42.9) % MCV 89 (79-97) fl MCH 30 (28-32) pg MCHC 33 (30-34) % RDW 13.3 (13.2-15.2) % Plt Count 253 (140-440) K/mm3 Lymph % (Auto) 24.8 (13.4-35.0) % [place] % (Auto) 11.1 H (0.0-7.3) % Eos % (Auto) 3.7 (0.0-4.3) % Baso % (Auto) 0.6 (0.0-1.8) % Lymph # 1.8 (1.2-5.4) K/mm3 [place] # 0.8 (0.0-0.8) K/mm3 Eos # 0.3 (0.0-0.4) K/mm3 Baso # 0.0 (0.0-0.1) K/mm3 Seg Neutrophils % 59.8 (40.0-70.0) % Seg Neutrophils # 4.3 (1.8-7.7) K/mm3 Sodium 127 L (137-145) mmol/L Potassium 3.3 L (3.6-5.0) mmol/L Chloride 90.1 L (98-107) mmol/L Carbon Dioxide 25 (22-30) mmol/L Anion Gap 15 mmol/L BUN 12 (7-17) mg/dL Creatinine 0.8 (0.7-1.2) mg/dL Estimated GFR > 60 ml/min BUN/Creatinine Ratio 15 % Glucose 133 H (65-100) mg/dL Calcium 9.6 (8.4-10.2) mg/dL Troponin T < 0.010 < 0.010 (0.00-0.029) ng/mL NT-Pro-B Natriuret Pep (0-900) pg/mL Urine Color (Yellow) Urine Turbidity (Clear) Urine pH (5.0-7.0) Ur Specific [place] (1.003-1.030) Urine Protein (Negative) mg/dL Urine Glucose (UA) (Negative) mg/dL Urine Ketones (Negative) mg/dL Urine Blood (Negative) Urine Nitrite (Negative) Urine Bilirubin (Negative) Urine Urobilinogen (<2.0) mg/dL Ur Leukocyte Esterase (Negative) Urine WBC (Auto) (0.0-6.0) /HPF Urine RBC (Auto) (0.0-6.0) /HPF U Epithel Cells (Auto) (0-13.0) /HPF Urine Bacteria (Auto) (Negative) /HPF Urine Opiates Screen Urine Methadone Screen Ur Barbiturates Screen Ur Phencyclidine Scrn Ur Amphetamines Screen U Benzodiazepines Scrn Urine Cocaine Screen U Marijuana (THC) Screen Drugs of Abuse Note 03/14/19 03/14/19 03/14/19 Range/Units 06:52 07:09 07:09 WBC (4.5-11.0) K/mm3 RBC (3.65-5.03) M/mm3 Hgb (10.1-14.3) gm/dl Hct (30.3-42.9) % MCV (79-97) fl MCH (28-32) pg MCHC (30-34) % RDW (13.2-15.2) % Plt Count (140-440) K/mm3 Lymph % (Auto) (13.4-35.0) % [place] % (Auto) (0.0-7.3) % Eos % (Auto) (0.0-4.3) % Baso % (Auto) (0.0-1.8) % Lymph # (1.2-5.4) K/mm3 [place] # (0.0-0.8) K/mm3 Eos # (0.0-0.4) K/mm3 Baso # (0.0-0.1) K/mm3 Seg Neutrophils % (40.0-70.0) % Seg Neutrophils # (1.8-7.7) K/mm3 Sodium (137-145) mmol/L Potassium (3.6-5.0) mmol/L Chloride (98-107) mmol/L Carbon Dioxide (22-30) mmol/L Anion Gap mmol/L BUN (7-17) mg/dL Creatinine (0.7-1.2) mg/dL Estimated GFR ml/min BUN/Creatinine Ratio % Glucose (65-100) mg/dL Calcium (8.4-10.2) mg/dL Troponin T (0.00-0.029) ng/mL NT-Pro-B Natriuret Pep 85.11 (0-900) pg/mL Urine Color Straw (Yellow) Urine Turbidity Clear (Clear) Urine pH 7.0 (5.0-7.0) Ur Specific [place] 1.004 (1.003-1.030) Urine Protein <15 mg/dl (Negative) mg/dL Urine Glucose (UA) Neg (Negative) mg/dL Urine Ketones Neg (Negative) mg/dL Urine Blood Neg (Negative) Urine Nitrite Neg (Negative) Urine Bilirubin Neg (Negative) Urine Urobilinogen < 2.0 (<2.0) mg/dL Ur Leukocyte Esterase Tr (Negative) Urine WBC (Auto) 1.0 (0.0-6.0) /HPF Urine RBC (Auto) 2.0 (0.0-6.0) /HPF U Epithel Cells (Auto) 2.0 (0-13.0) /HPF Urine Bacteria (Auto) 1+ (Negative) /HPF Urine Opiates Screen Presumptive negative Urine Methadone Screen Presumptive negative Ur Barbiturates Screen Presumptive negative Ur Phencyclidine Scrn Presumptive negative Ur Amphetamines Screen Presumptive negative U Benzodiazepines Scrn Presumptive negative Urine Cocaine Screen Presumptive negative U Marijuana (THC) Screen Presumptive negative Drugs of Abuse Note Disclamer - EKG Data -: EKG Interpreted by Me EKG shows normal: sinus rhythm Rate: normal - Radiology Data Radiology results: report reviewed - Medical Decision Making Discussed results with patient Critical care attestation.: If time is entered above; I have spent that time in minutes in the direct care of this critically ill patient, excluding procedure time. ED Disposition Clinical Impression: Weakness Disposition: DC-01 TO HOME OR SELFCARE Is pt being admited?: No Does the pt Need Aspirin: No Condition: Stable Instructions: Weakness (ED) Additional Instructions: return if worse Prescriptions: Ibuprofen [Motrin] 800 mg PO Q8HR PRN #30 tablet PRN Reason: Pain Referrals: PRIMARY CAREMD [Primary Care Provider] - 3-5 Days [facility] [Provider Group] - 3-5 Days [facility] [Provider Group] - 3-5 Days BRITTANEY KIRBY MD [Staff Physician] - 3-5 Days Time of Disposition: 08:15
[2019-03-14 07:26] LABS: Amphetamine Screen,Urine PRESUMPTIVE NEGATIVE; Benzodiazepines Screen,Urine PRESUMPTIVE NEGATIVE; Cannabinoid Screen,Urine PRESUMPTIVE NEGATIVE; Cocaine Screen,Urine PRESUMPTIVE NEGATIVE; Methadone Screen,Urine PRESUMPTIVE NEGATIVE; Opiate Screen,Urine PRESUMPTIVE NEGATIVE
--- NOTE | 2019-03-14 07:30 | Cat Scan Report ---
PROCEDURE: CT HEAD/BRAIN WO CON TECHNIQUE: Computerized tomography of the head was performed without contrast material. CT DOSE LENGTH PRODUCT: mGycm HISTORY: headache/weakness COMPARISONS: 05/05/2018 . FINDINGS: Skull and scalp: Normal . Paranasal sinuses: Normal . Ventricles and subarachnoid spaces: Normal . Cerebrum: No evidence of hemorrhage, acute infarction or mass . There is diminished attenuation of t he periventricular white matter. Cerebellum and brainstem: No evidence of hemorrhage, acute infarction or mass . Vasculature: Normal . Other: None . ASPECTS: 10 IMPRESSION: Age-related volume loss with chronic ischemic white matter disease changes. No evidence of acute stroke or hemorrhage. This document is electronically signed by Ken Summers MD., March 14 2019 08:28:51 AM ET
[2019-03-14 07:46] LABS: Bacteria,Urine 1+ /HPF (Negative); Bilirubin,Urine NEG (Negative); Blood,Urine NEG (Negative); Color,Urine Straw (Yellow); Protein,Urine <15 mg/dL mg/dL (Negative); Urobilinogen,Urine < 2.0 mg/dL (<2.0)
[2019-03-14 08:40] VITALS: BP 161/70
== END 2019-03-14 08:40 | disposition home or self-care (01) ==
LOC: ED 03:10
DX: R53.1 Weakness (principal); R51 Headache; I10 Essential (primary) hypertension; M19.90 Unspecified osteoarthritis, unspecified site; J45.909 Unspecified asthma, uncomplicated; E78.00 Pure hypercholesterolemia, unspecified; E87.1 Hypo-osmolality and hyponatremia; M25.561 Pain in right knee; G89.29 Other chronic pain; Z98.51 Tubal ligation status
CPT/HCPCS: 36415; 70450; 71045; 80048; 80307; 81001; 83880; 84484; 85025; 93005; 93010; 99285; J7030; Q0162

== ENCOUNTER 2019-08-16 22:26 | Emergency (ER) | payer MEDICARE ==
[2019-08-16 23:46] LABS: Basophils # (Auto) 0.1 K/mm3 (0.0-0.1); Eosinophils # (Auto) 0.2 K/mm3 (0.0-0.4); Eosinophils % (Auto) 1.8 % (0.0-4.3); Hematocrit 41.6 % (30.3-42.9); Hemoglobin 14.3 gm/dl (10.1-14.3); Lymphocytes # (Auto) 1.9 K/mm3 (1.2-5.4); Lymphocytes % (Auto) 21.5 % (13.4-35.0); Mean Corpuscular HGB Conc 34 % (30-34); Mean Corpuscular Volume 88 fl (79-97); Monocytes % (Auto) 11.1 % (0.0-7.3); Platelet Count 239 K/mm3 (140-440); Red Blood Count 4.73 M/mm3 (3.65-5.03); Red Cell Distribution Width 13.9 % (13.2-15.2)
[2019-08-17 00:10] LABS: Alanine Aminotransferase 13 units/L (7-56); BUN/Creatinine Ratio 17; Blood Urea Nitrogen 15 mg/dL (7-17); Calcium 9.2 mg/dL (8.4-10.2); Hemolysis Index 14
--- NOTE | 2019-08-17 01:06 | Emergency Department Report ---
HPI - General Chief Complaint: Abdominal Pain Time Seen by Provider: 08/17/19 00:41 - HPI HPI: 74-year-old female presents to the emergency department with complaint of some lower abdominal discomfort and labile blood pressure. Patient says that she went to sleep around 5:30 PM and woke up about 2 hours later and "I felt like my bladder was going to bust." The patient did go to the bathroom but still says that she has this lower abdominal soreness. She denies any fever, nausea, vomiting, diarrhea, constipation. She is not taking anything for her symptoms prior to presentation. Patient also complains of having very elevated blood pressures over the past week but says "then they come back down." She has a past history of asthma, hyperlipidemia, hyponatremia, hypertension. Her primary care physician is Dr. Roa. ED Past Medical Hx - Past Medical History Previous Medical History?: Yes Hx Hypertension: Yes (10/11/1989) Hx Arthritis: Yes Hx Psychiatric Treatment: Yes Hx Asthma: Yes Hx HIV: No Additional medical history: high cholesterol. Autonomic dysfunction. Hyponatremia - Surgical History Past Surgical History?: Yes Additional Surgical History: Cardiac cath x 2, Tubal Ligation - Social History Smoking Status: Never Smoker Substance Use Type: None - Medications Home Medications: Home Medications Medication Instructions Recorded Confirmed Last Taken Type Atorvastatin [Lipitor] 80 mg PO DAILY 05/05/18 11/17/18 Unknown History Chlorthalidone [Thalitone] 12.5 mg PO QDAY #30 tablet 11/21/18 Unknown Rx Olmesartan (Nf) [Benicar] 20 mg PO QDAY #30 tablet 11/21/18 Unknown Rx Ondansetron [Zofran Odt] 4 mg PO Q8HR PRN #14 tab.rapdis 03/11/19 Unknown Rx traMADol [Ultram 50 MG tab] 50 mg PO Q4HR PRN #14 tablet 03/11/19 Unknown Rx Ibuprofen [Motrin] 800 mg PO Q8HR PRN #30 tablet 03/14/19 Unknown Rx ED Review of Systems ROS: Stated complaint: ABD PAIN/WEAKNESS Other details as noted in HPI Comment: All other systems reviewed and negative Constitutional: denies: chills, fever ENT: denies: epistaxis Respiratory: denies: cough Cardiovascular: denies: chest pain, palpitations Gastrointestinal: abdominal pain. denies: vomiting Genitourinary: frequency. denies: dysuria, discharge Musculoskeletal: denies: joint swelling, arthralgia Neurological: denies: headache, weakness Physical Exam - Physical Exam Vital Signs: Vital Signs 08/16/19 08/16/19 08/17/19 22:32 23:12 00:46 Temperature 97.9 F 98.1 F 97.8 F Pulse Rate 98 H 81 71 Respiratory 18 20 14 Rate Blood Pressure 122/70 122/55 Blood Pressure 126/61 [Left] O2 Sat by Pulse 94 95 97 Oximetry Physical Exam: GENERAL: The patient is well-developed well-nourished. HENT: Normocephalic. Atraumatic. Patient has moist mucous membranes. EYES: Extraocular motions are intact. NECK: Supple. Trachea is midline. CHEST/LUNGS: Clear to auscultation. There is no respiratory distress noted. HEART/CARDIOVASCULAR: Regular. There is no tachycardia. There is no murmur. ABDOMEN: Abdomen is soft. Mild lower abdominal tenderness to palpation. No guarding. Patient has normal bowel sounds. There is no abdominal distention. SKIN: Skin is warm and dry. NEURO: The patient is awake, alert, and oriented. The patient is cooperative. The patient has no focal neurologic deficits. Normal speech. MUSCULOSKELETAL: There is no tenderness or deformity. There is no evidence of acute injury. ED Course Vital Signs 08/16/19 08/16/19 08/17/19 22:32 23:12 00:46 Temperature 97.9 F 98.1 F 97.8 F Pulse Rate 98 H 81 71 Respiratory 18 20 14 Rate Blood Pressure 122/70 122/55 Blood Pressure 126/61 [Left] O2 Sat by Pulse 94 95 97 Oximetry ED Medical Decision Making - Lab Data Result diagrams: 08/16/19 23:19 08/16/19 23:19 - Radiology Data Radiology results: report reviewed, image reviewed interpreted by me: Abdominal x-ray shows nonspecific nonobstructive bowel gas. CT ABDOMEN AND PELVIS WITH CONTRAST INDICATION / CLINICAL INFORMATION: lower abd pain. Mid to lower abdominal pain with nausea for 3 days. TECHNIQUE: Axial CT images were obtained through the abdomen and pelvis after 100 mL Omnipaque [address] scans at this location are performed using CT dose reduction for ALARA by means of automated exposure control. COMPARISON: CT dated 05/05/18 FINDINGS: LOWER CHEST: No significant abnormality. LIVER: No significant abnormality. GALLBLADDER: No significant abnormality. BILE DUCTS: No significant abnormality. PANCREAS: No significant abnormality. SPLEEN: No significant abn ormality. ADRENALS: No significant abnormality. RIGHT KIDNEY and URETER: No significant abnormality. LEFT KIDNEY and URETER: No significant abnormality. STOMACH and SMALL BOWEL: No significant abnormality. COLON: Mild colonic diverticulosis without inflammation. APPENDIX: No significant abnormality. PERITONEUM: No free fluid. No free air. No fluid collection. LYMPH NODES: No significant adenopathy. AORTA and ARTERIES: Mild atherosclerotic calcification without acute abnormality. IVC and VEINS: No significant abnormality. URINARY BLADDER: No significant abnormality. REPRODUCTIVE ORGANS: No significant abnormality. ADDITIONAL FINDINGS: None. SKELETAL SYSTEM: No significant abnormality. IMPRESSION: 1. No acute process in the abdomen or pelvis. - Medical Decision Making This patient presents with a complaint of some acute lower abdominal pain that the patient associated with her bladder. Labs have been unremarkable. She did have 10 white blood cells in the urine but she also has 8 epithelial cells and there are no nitrites so this does not appear consistent with a urinary tract infection. CT scan of the abdomen and pelvis was done with IV contrast that does not show any acute process. The patient also complained of having some type of labile blood pressure. However it has been in the normal range and constant throughout her ED course. She appears safe for discharge home at this time. She's been instructed to follow-up with her primary care physician and return to the ER with any worsening of her symptoms or any acute distress. - Differential Diagnosis UTI, colitis, pyelonephritis Critical Care Time: No Critical care attestation.: If time is entered above; I have spent that time in minutes in the direct care of this critically ill patient, excluding procedure time. ED Disposition Clinical Impression: Abdominal pain Qualifiers: Abdominal location: lower abdomen, unspecified Qualified Code(s): R10.30 - Lower abdominal pain, unspecified Disposition: - TO HOME OR SELFCARE Is pt being admited?: No Condition: Stable Instructions: Abdominal Pain (ED) Additional Instructions: Please follow-up with your primary care physician in the next few days. Return to the emergency Department with any worsening of your symptoms or any acute distress. Referrals: PRIMARY CARE, [Primary Care Provider] - 2-3 Days Time of Disposition: 03:29
[2019-08-17 01:11] LABS: Bacteria,Urine 1+ /HPF (Negative); Bilirubin,Urine NEG (Negative); Blood,Urine NEG (Negative); Color,Urine Yellow (Yellow); Protein,Urine <15 mg/dL mg/dL (Negative); Urobilinogen,Urine < 2.0 mg/dL (<2.0)
--- NOTE | 2019-08-17 01:54 | XRay Report ---
ABDOMEN 2 VIEWS INDICATION / CLINICAL INFORMATION: abd pain. COMPARISON: None available. FINDINGS: TUBES / LINES: None. BOWEL GAS PATTERN: No dilated bowel. Moderate amount of fecal material throughout the colon. FREE AIR / EXTRALUMINAL GAS: None seen. ADDITIONAL FINDINGS: No significant additional findings. LUNGS: Lung bases appear clear. IMPRESSION: 1. No acute abnormality. Signer Name: Milan Qiu MD Signed: 08/17/2019 1:50 AM Workstation Name: [id number]
--- NOTE | 2019-08-17 03:24 | Cat Scan Report ---
CT ABDOMEN AND PELVIS WITH CONTRAST INDICATION / CLINICAL INFORMATION: lower abd pain. Mid to lower abdominal pain with nausea for 3 days. TECHNIQUE: Axial CT images were obtained through the abdomen and pelvis after 100 mL Omnipaque [address] scans at this location are performed using CT dose reduction for ALARA by means of automated exposure control. COMPARISON: CT dated 05/05/18 FINDINGS: LOWER CHEST: No significant abnormality. LIVER: No significant abnormality. GALLBLADDER: No significant abnormality. BILE DUCTS: No significant abnormality. PANCREAS: No significant abnormality. SPLEEN: No significant abnormality. ADRENALS: No significant abnormality. RIGHT KIDNEY and URETER: No significant abnormality. LEFT KIDNEY and URETER: No significant abnormality. STOMACH and SMALL BOWEL: No significant abnormality. COLON: Mild colonic diverticulosis without inflammation. APPENDIX: No significant abnormality. PERITONEUM: No free fluid. No free air. No fluid collection. LYMPH NODES: No significant adenopathy. AORTA and ARTERIES: Mild atherosclerotic calcification without acute abnormality. IVC and VEINS: No significant abnormality. URINARY BLADDER: No significant abnormality. REPRODUCTIVE ORGANS: No significant abnormality. ADDITIONAL FINDINGS: None. SKELETAL SYSTEM: No significant abnormality. IMPRESSION: 1. No acute process in the abdomen or pelvis. Signer Name: Milan Qiu MD Signed: 08/17/2019 3:19 AM Workstation Name: [id number]
[2019-08-17 04:15] VITALS: BP 131/57
== END 2019-08-17 03:50 | disposition home or self-care (01) ==
LOC: ED 22:26
DX: R10.30 Lower abdominal pain, unspecified (principal); I10 Essential (primary) hypertension; M19.90 Unspecified osteoarthritis, unspecified site; J45.909 Unspecified asthma, uncomplicated; E78.00 Pure hypercholesterolemia, unspecified; E87.1 Hypo-osmolality and hyponatremia; Z79.899 Other long term (current) drug therapy; Z98.51 Tubal ligation status; Z98.890 Other specified postprocedural states
CPT/HCPCS: 36415; 74019; 74177; 80053; 81001; 85025; 87086; 99284; Q9967

== ENCOUNTER 2019-09-29 13:06 | Observation (INO) | payer MEDICARE ==
[2019-09-30 08:54] VITALS: BP 111/54
== END 2019-09-30 13:48 | disposition home or self-care (01) ==
LOC: ED 13:06 → 4A 15:19
PROVIDERS: ADMIT Internal Medicine; ATTEND Internal Medicine
DX: R07.89 Other chest pain (principal); I10 Essential (primary) hypertension; E78.5 Hyperlipidemia, unspecified; G89.29 Other chronic pain; M19.90 Unspecified osteoarthritis, unspecified site; J45.909 Unspecified asthma, uncomplicated; E78.00 Pure hypercholesterolemia, unspecified; E87.1 Hypo-osmolality and hyponatremia; R06.00 Dyspnea, unspecified; Z95.1 Presence of aortocoronary bypass graft; Z98.51 Tubal ligation status
CPT/HCPCS: 36415; 71045; 78452; 80048; 80053; 83036; 84484; 85025; 85379; 85610; 85730; 93005; 93010; 93017; 96374; 99284; A9270; A9502; G0378; J2270; J2785

== ENCOUNTER 2020-09-25 01:11 | Emergency (ER) | payer MEDICARE ==
[2020-09-25] MEDS ORDERED: ASPIRIN 325 MG TAB PO ONE (01:15)
[2020-09-25 01:49] LABS: Basophils # (Auto) 0.1 K/mm3 (0.0-0.1); Basophils % (Auto) 0.5 % (0.0-1.8); Eosinophils # (Auto) 0.3 K/mm3 (0.0-0.4); Hematocrit 40.6 % (30.3-42.9); Hemoglobin 13.7 gm/dl (10.1-14.3); Lymphocytes # (Auto) 2.9 K/mm3 (1.2-5.4); Lymphocytes % (Auto) 29.2 % (13.4-35.0); Mean Corpuscular HGB Conc 34 % (30-34); Mean Corpuscular Volume 89 fl (79-97); Monocytes # (Auto) 1.2 K/mm3 (0.0-0.8); Monocytes % (Auto) 12.3 % (0.0-7.3); Platelet Count 222 K/mm3 (140-440); Red Blood Count 4.54 M/mm3 (3.65-5.03); Red Cell Distribution Width 13.4 % (13.2-15.2)
[2020-09-25 02:10] LABS: BUN/Creatinine Ratio 14; Blood Urea Nitrogen 13 mg/dL (7-17); Calcium 9.5 mg/dL (8.4-10.2); Hemolysis Index 8
--- NOTE | 2020-09-25 02:26 | XRay Report ---
CHEST 1 VIEW, 09/25/2020 1:30 AM CLINICAL INFORMATION/INDICATION: Chest pain COMPARISON: Chest radiograph, 10/30/2018 FINDINGS: SUPPORT DEVICES: None. HEART: The cardiac silhouette is normal in size. LUNGS/PLEURA: The lungs are clear of focal airspace disease or significant pleural effusion. ADDITIONAL FINDINGS: No additional acute findings. IMPRESSION: 1. No evidence of acute cardiopulmonary process. Signer Name: Zahida Blank MD Signed: 09/25/2020 2:22 AM Workstation Name: [id number]
--- NOTE | 2020-09-25 06:28 | Emergency Department Report ---
ED General Adult HPI - General Chief complaint: Arrhythmia/Palpitations Stated complaint: CHEST PAIN Time Seen by Provider: 09/25/20 06:27 Source: patient, EMS Mode of arrival: Wheelchair Limitations: No Limitations - History of Present Illness Initial comments: Patient is a 75-year-old hypertensive female who presents emergency department for evaluation of palpitations described as rapid heartbeat without chest pain, without dyspnea. Patient states she awoke suddenly around midnight, felt her heart beating fast, this resolved spontaneously several seconds later, however, patient remained concerned prompting ER evaluation. Patient denies any rec urrent or ongoing symptoms, denies any associated symptoms, denies history of cardiac disease. Patient denies fever, denies thyroid abnormality, denies change in eating habits. - Related Data Home Medications Medication Instructions Recorded Confirmed Last Taken Atorvastatin [Lipitor] 80 mg PO DAILY 05/05/18 09/29/19 Unknown Flonase 50 mcg INHALATION DAILY 09/29/19 09/29/19 Unknown Gabapentin 300 mg PO TID 09/29/19 09/29/19 Unknown Ibuprofen [Motrin 800 MG tab] 600 mg PO DAILY PRN 09/29/19 09/29/19 Unknown Ondansetron [Zofran ODT TAB] 8 mg PO Q8HR PRN 09/29/19 09/29/19 Unknown Previous Rx's Medication Instructions Recorded Last Taken Type Chlorthalidone [Thalitone] 12.5 mg PO QDAY #30 tablet 11/21/18 Unknown Rx Olmesartan (Nf) [Benicar] 20 mg PO QDAY #30 tablet 11/21/18 Unknown Rx Benzonatate [Tessalon Perles] 100 mg PO Q8HR PRN #21 capsule 09/30/19 Unknown Rx Cetirizine HCl [ZyrTEC 10mg rapdis] 10 mg PO DAILY #10 tab.rapdis 09/30/19 Unknown Rx Famotidine [Pepcid] 20 mg PO BID #30 tablet 09/30/19 Unknown Rx Allergies Allergy/AdvReac Type Severity Reaction Status Date / Time No Known Allergies Allergy Verified 03/11/19 17:08 ED Review of Systems ROS: Stated complaint: CHEST PAIN Other details as noted in HPI Comment: All other systems reviewed and negative ED Past Medical Hx - Past Medical History Hx Hypertension: Yes (10/11/1989) Hx Arthritis: Yes Hx Psychiatric Treatment: Yes Hx Asthma: Yes Hx HIV: No Additional medical history: high cholesterol. Autonomic dysfunction. Hyponatremia - Surgical History Additional Surgical History: Cardiac cath x 2, Tubal Ligation - Social History Smoking Status: Never Smoker Substance Use Type: None - Medications Home Medications: Home Medications Medication Instructions Recorded Confirmed Last Taken Type Atorvastatin [Lipitor] 80 mg PO DAILY 05/05/18 09/29/19 Unknown History Chlorthalidone [Thalitone] 12.5 mg PO QDAY #30 tablet 11/21/18 09/29/19 Unknown Rx Olmesartan (Nf) [Benicar] 20 mg PO QDAY #30 tablet 11/21/18 09/29/19 Unknown Rx Flonase 50 mcg INHALATION DAILY 09/29/19 09/29/19 Unknown History Gabapentin 300 mg PO TID 09/29/19 09/29/19 Unknown History Ibuprofen [Motrin 800 MG tab] 600 mg PO DAILY PRN 09/29/19 09/29/19 Unknown History Ondansetron [Zofran ODT TAB] 8 mg PO Q8HR PRN 09/29/19 09/29/19 Unknown History Benzonatate [Tessalon Perles] 100 mg PO Q8HR PRN #21 capsule 09/30/19 Unknown Rx Cetirizine HCl [ZyrTEC 10mg rapdis] 10 mg PO DAILY #10 tab.rapdis 09/30/19 Unknown Rx Famotidine [Pepcid] 20 mg PO BID #30 tablet 09/30/19 Unknown Rx ED Physical Exam - General Limitations: No Limitations General appearance: alert, in no apparent distress - Head Head exam: Present: atraumatic, normocephalic - Eye Eye exam: Present: normal appearance - ENT ENT exam: Present: mucous membranes moist - Neck Neck exam: Present: normal inspection - Respiratory Respiratory exam: Present: normal lung sounds bilaterally. Absent: respiratory distress - Cardiovascular Cardiovascular Exam: Present: regular rate, normal rhythm. Absent: systolic murmur, diastolic murmur, rubs, gallop - GI/Abdominal GI/Abdominal exam: Present: soft, normal bowel sounds - Extremities Exam Extremities exam: Present: normal inspection - Back Exam Back exam: Present: normal inspection - Neurological Exam Neurological exam: Present: alert, oriented X3 - Psychiatric Psychiatric exam: Present: normal affect, normal mood - Skin Skin exam: Present: warm, dry, intact, normal color. Absent: rash ED Course Vital Signs 09/25/20 09/25/20 09/25/20 01:13 06:28 06:29 Temperature 97.8 F Pulse Rate 74 Respiratory 17 Rate Blood Pressure 164/73 O2 Sat by Pulse 97 96 99 Oximetry 09/25/20 09/25/20 06:31 06:36 Temperature Pulse Rate 72 Respiratory 17 18 Rate Blood Pressure 137/53 O2 Sat by Pulse 99 Oximetry - Reevaluation(s) Reevaluation #1: 09/25/20 06:44 athletic monitor: Regular rate and rhythm without ectopy as interpreted by me Reevaluation #2: 09/25/20 06:46 Patient treated with IV NS given slightly low sodium and chloride indicating possible dehydration, lab work including troponin x2 otherwise reassuring. ED Medical Decision Making - Lab Data Result diagrams: 09/25/20 01:22 09/25/20 01:22 Lab Results 09/25/20 09/25/20 09/25/20 Range/Units 01:22 01:22 05:27 WBC 10.0 (4.5-11.0) K/mm3 RBC 4.54 (3.65-5.03) M/mm3 Hgb 13.7 (10.1-14.3) gm/dl Hct 40.6 (30.3-42.9) % MCV 89 (79-97) fl MCH 30 (28-32) pg MCHC 34 (30-34) % RDW 13.4 (13.2-15.2) % Plt Count 222 (140-440) K/mm3 Lymph % (Auto) 29.2 (13.4-35.0) % [place] % (Auto) 12.3 H (0.0-7.3) % Eos % (Auto) 3.0 (0.0-4.3) % Baso % (Auto) 0.5 (0.0-1.8) % Lymph # (Auto) 2.9 (1.2-5.4) K/mm3 [place] # (Auto) 1.2 H (0.0-0.8) K/mm3 Eos # (Auto) 0.3 (0.0-0.4) K/mm3 Baso # (Auto) 0.1 (0.0-0.1) K/mm3 Seg Neutrophils % 55.0 (40.0-70.0) % Seg Neutrophils # 5.5 (1.8-7.7) K/mm3 Sodium 128 L (137-145) mmol/L Potassium 4.8 (3.6-5.0) mmol/L Chloride 90.8 L (98-107) mmol/L Carbon Dioxide 26 (22-30) mmol/L Anion Gap 16 mmol/L BUN 13 (7-17) mg/dL Creatinine 0.9 (0.6-1.2) mg/dL Estimated GFR > 60 ml/min BUN/Creatinine Ratio 14 % Glucose 127 H (65-100) mg/dL Calcium 9.5 (8.4-10.2) mg/dL Troponin T < 0.010 < 0.010 (0.00-0.029) ng/mL Vital Signs 09/25/20 09/25/20 09/25/20 01:13 06:28 06:29 Temperature 97.8 F Pulse Rate 74 Respiratory 17 Rate Blood Pressure 164/73 O2 Sat by Pulse 97 96 99 Oximetry 09/25/20 09/25/20 06:31 06:36 Temperature Pulse Rate 72 Respiratory 17 18 Rate Blood Pressure 137/53 O2 Sat by Pulse 99 Oximetry - EKG Data -: EKG Interpreted by Me (Sinus rhythm at 72, no ST-T changes, normal QRS) - Radiology Data Radiology results: report reviewed no acute disease per radiology Critical care attestation.: If time is entered above; I have spent that time in minutes in the direct care of this critically ill patient, excluding procedure time. ED Disposition Clinical Impression: Palpitations Disposition: -01 TO HOME OR SELFCARE Is pt being admited?: No Condition: Stable Referrals: PRIMARY CARE, [Primary Care Provider] - 3-5 Days
[2020-09-25] MEDS ORDERED: SODIUM CHLORIDE 0.9% 500 ML 500 ML IV ONE (06:45)
[2020-09-25 09:09] VITALS: BP 146/64
== END 2020-09-25 08:35 | disposition home or self-care (01) ==
LOC: ED 01:11
DX: R00.2 Palpitations (principal); E78.00 Pure hypercholesterolemia, unspecified; M19.90 Unspecified osteoarthritis, unspecified site; J45.909 Unspecified asthma, uncomplicated; Z98.890 Other specified postprocedural states; Z98.51 Tubal ligation status; Z79.899 Other long term (current) drug therapy
CPT/HCPCS: 36415; 71045; 80048; 84484; 85025; 93005; 99284; J7040

== ENCOUNTER 2021-07-16 12:42 | Emergency (ER) | payer MEDICARE ==
--- NOTE | 2021-07-16 13:36 | Event Note ---
ED Screening Note ED Screening Note: 75 yo comes to ER co headache and dizziness; as well as sob; denies chest pain also co r shoulder and neck pain She says she waiting to come in because she thought it was just the fall and would get better but "the dizziness is getting worse." She walks with a cane "sometimes" but now she is having to use it because of the dizziness This was a mechanical fall/ GLF- while taking trash out she fell 5 days ago and she is associating symptoms with fall; but she adds she is weak and more sob no focal deficit pmh htn hld obese rx asa lisinopril statin vitamin This initial assessment/diagnostic orders/clinical plan/treatment(s) is/are subject to change based on patients health status, clinical progression and re- assessment by fellow clinical providers in the ED. Further treatment and workup at subsequent clinical providers discretion. Patient/guardian urged not to elope from the ED as their condition may be serious if not clinically assessed and managed. Initial orders include: ro acs/tia imaging ro fx
--- NOTE | 2021-07-16 14:08 | XRay Report ---
CHEST 2 VIEWS INDICATION / CLINICAL INFORMATION: sob. COMPARISON: 09/25/20 FINDINGS: SUPPORT DEVICES: None. HEART / MEDIASTINUM: No significant abnormality. LUNGS / PLEURA: No significant pulmonary or pleural abnormality. No pneumothorax. ADDITIONAL FINDINGS: No significant additional findings. IMPRESSION: 1. No acute findings. Signer Name: Milan Qiu MD Signed: 07/16/2021 2:03 PM Workstation Name: [id number]
--- NOTE | 2021-07-16 14:18 | XRay Report ---
RIGHT SHOULDER 3 VIEWS INDICATION: pain sp fall. COMPARISON: None. IMPRESSION: No acute osseous or soft tissue abnormality. 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 Signer Name: Gerson Deluca Jr, MD Signed: 07/16/2021 2:14 PM Workstation Name: [id number]
--- NOTE | 2021-07-16 14:29 | Cat Scan Report ---
NONENHANCED CT SCAN OF THE HEAD: INDICATION / CLINICAL INFORMATION: 75 years Female; dizzy/headache/sp fall. TECHNIQUE: Routine CT head without contrast. All CT scans at this location are performed using CT dos e reduction for ALARA by means of automated exposure control. COMPARISON: CT scan of the head from 03/14/2019 FINDINGS: BRAIN / INTRACRANIAL CONTENTS: No intracranial sequela from the trauma; no scalp hematoma; no air-flu id level in the visualized portions of the paranasal sinuses No acute hemorrhage, mass effect, midline shift, hydrocephalus, or acute, large territorial infarct. No chronic infarct or focal atrophy. Normal brain volume and ventricular/sulcal size for age. Periven tricular low-attenuation areas due to chronic small vessel disease; CT unchanged CRANIOCERVICAL JUNCTION: No significant abnormality. ORBITS: No significant abnormality of visualized orbits. SINUSES / MASTOIDS: No significant abnormality of the visualized paranasal sinuses or mastoid air linda ls. ADDITIONAL FINDINGS: None. IMPRESSION: No acute focal parenchymal lesion Signer Name: Neha Gatica MD Signed: 07/16/2021 2:25 PM Workstation Name: [id number]
[2021-07-16 14:31] LABS: Hemoglobin 12.2 gm/dl (10.1-14.3); Mean Corpuscular HGB Conc 34 % (30-34); Mean Corpuscular Volume 90 fl (79-97); Platelet Count 224 K/mm3 (140-440); Red Cell Distribution Width 14.2 % (13.2-15.2)
--- NOTE | 2021-07-16 14:35 | Cat Scan Report ---
Exam: CT cervical spine History: dizzy/headache/sp fall; Technique: Contiguous thin cut axial images obtained through the cervical spine. Sagittal and callahan l reconstructions performed by the technologist. All CT scans at this location are performed using CT dose reduction for ALARA by means of automated exposure control. Findings: No priors. There is no evidence of fracture or traumatic subluxation. Vertebral bodies are normal in height and alignment. Intervertebral disc spaces: Motion related artifacts at the C1-C2 level obscuring the details C3-C4: Uncovertebral joint hypertrophy bilaterally; disc height loss; shallow bony spur; moderate rig ht foraminal stenoses C4-C5: Disc height loss; uncovertebral joint hypertrophy; disc osteophyte complex extending bilateral ly; minimal foraminal stenoses C5-C6: Disc height loss; uncovertebral joint hypertrophy any: Bony spur extending bilaterally more to the right side; foraminal stenoses C6-C7: Bony spur extending bilaterally; bilateral foraminal stenoses C7-T1: Normal Surrounding soft tissues are grossly normal. Impression: No signs of acute bony trauma to the cervical spine. Signer Name: Neha Gatica MD Signed: 07/16/2021 2:31 PM Workstation Name: [id number]
[2021-07-16 14:41] LABS: INR 0.93 (0.87-1.13)
[2021-07-16 14:42] LABS: Partial Thromboplastin Time 24.8 Sec. (24.2-36.6)
[2021-07-16 14:46] LABS: Alanine Aminotransferase 15 units/L (7-56); Albumin 4.2 g/dL (3.9-5); Blood Urea Nitrogen 8 mg/dL (7-17); Calcium 9.4 mg/dL (8.4-10.2); Hemolysis Index 2
[2021-07-16 16:54] LABS: BUN/Creatinine Ratio 11
[2021-07-16 16:58] VITALS: BP 192/77
--- NOTE | 2021-07-16 17:07 | Emergency Department Report ---
ED Fall HPI - General Chief Complaint: Fall Stated Complaint: fallen bumped head Time Seen by Provider: 07/16/21 13:31 Source: patient Mode of arrival: Ambulatory - History of Present Illness Initial Comments: 75-year-old female, history of hypertension, presents to ED status post fall 5 days ago. Patient states she was taking her trash out at around 9:30 PM when she tripped and fell as she was turning around. Patient denies LOC. She does report hitting her head, complaining of a headache currently. She also reports some neck pain and right shoulder pain. MD Complaint: fall -: days(s) (5) Fall From: standing Place Fall Occurred: home Loss of Consciousness: none Prolonged Down Time?: no Symptoms Prior to Fall: none Location: head, neck Location - Extremities: Right: Shoulder Severity: moderate Quality: aching Context: tripped/slipped Associated Symptoms: headache, neck pain, lightheaded. denies: numbness, weakness, chest paint, shortness of breath - Related Data Home Medications Medication Instructions Recorded Confirmed Last Taken Atorvastatin [Lipitor] 80 mg PO DAILY 05/05/18 09/29/19 Unknown Previous Rx's Medication Instructions Recorded Last Taken Type Chlorthalidone [Thalitone] 12.5 mg PO QDAY #30 tablet 11/21/18 Unknown Rx Naproxen [Naprosyn] 500 mg PO BID #20 tablet 07/16/21 Unknown Rx Allergies Allergy/AdvReac Type Severity Reaction Status Date / Time No Known Allergies Allergy Verified 03/11/19 17:08 ED Review of Systems ROS: Stated complaint: fallen bumped head Other details as noted in HPI Comment: All other systems reviewed and negative Respiratory: denies: shortness of breath Cardiovascular: denies: chest pain Gastrointestinal: denies: nausea, vomiting Musculoskeletal: as per HPI Neurological: headache. denies: weakness, numbness ED Past Medical Hx - Past Medical History Previous Medical History?: Yes Hx Hypertension: Yes (10/11/1989) Hx Arthritis: Yes Hx Psychiatric Treatment: Yes Hx Asthma: Yes Hx HIV: No Additional medical history: high cholesterol. Autonomic dysfunction. Hyp onatremia - Surgical History Past Surgical History?: Yes Additional Surgical History: Cardiac cath x 2, Tubal Ligation - Social History Smoking Status: Never Smoker Substance Use Type: None - Medications Home Medications: Home Medications Medication Instructions Recorded Confirmed Last Taken Type Atorvastatin [Lipitor] 80 mg PO DAILY 05/05/18 09/29/19 Unknown History Chlorthalidone [Thalitone] 12.5 mg PO QDAY #30 tablet 11/21/18 09/29/19 Unknown Rx Naproxen [Naprosyn] 500 mg PO BID #20 tablet 07/16/21 Unknown Rx ED Physical Exam - General Limitations: No Limitations General appearance: alert, in no apparent distress - Head Head exam: Present: atraumatic, normocephalic - Eye Eye exam: Present: normal appearance, EOMI - ENT ENT exam: Present: mucous membranes moist - Neck Neck exam: Present: normal inspection, tenderness (Slight posterior tenderness) - Respiratory Respiratory exam: Present: normal lung sounds bilaterally. Absent: respiratory distress - Cardiovascular Cardiovascular Exam: Present: regular rate, normal rhythm - GI/Abdominal GI/Abdominal exam: Present: soft. Absent: distended, tenderness - Extremities Exam Extremities exam: Present: normal inspection, other (Pain with range of motion of right shoulder, no deformities noted) - Back Exam Back exam: Present: normal inspection - Neurological Exam Neurological exam: Present: alert, oriented X3, CN II-XII intact. Absent: motor sensory deficit - Psychiatric Psychiatric exam: Present: normal affect, normal mood - Skin Skin exam: Present: warm, dry, intact, normal color ED Course Vital Signs 07/16/21 07/16/21 12:58 16:57 Temperature 98.6 F Pulse Rate 72 65 Respiratory 20 16 Rate Blood Pressure 206/77 Blood Pressure 192/77 [Right] O2 Sat by Pulse 99 98 Oximetry ED Medical Decision Making - Lab Data Result diagrams: 07/16/21 14:08 07/16/21 14:08 - Radiology Data Radiology results: report reviewed, image reviewed - Medical Decision Making 75-year-old female presents to ED with pain secondary to ground-level fall 5 days ago. Work-up is unremarkable, no acute injuries. Blood pressure is elevated. This may be due to patient's pain she reports that she did take her blood pressure medicine earlier this morning. Patient is only asking for something mild for pain. Patient given Motrin. Outpatient follow-up advised, return precautions given. - Differential Diagnosis Fracture, contusion, sprain, intracranial abnormality Critical care attestation.: If time is entered above; I have spent that time in minutes in the direct care of this critically ill patient, excluding procedure time. ED Disposition Clinical Impression: Fall, Closed head injury, Acute cervical myofascial strain, Contusion of right shoulder Disposition: 01 HOME / SELF CARE / HOMELESS Is pt being admited?: No Condition: Stable Instructions: Contusion, [id number], Cervical Sprain, Head Injury, Adult, [id number] Prescriptions: Naproxen [Naprosyn] 500 mg PO BID #20 tablet Referrals: PRIMARY CARE, [Primary Care Provider] - 3-5 Days
[2021-07-16] MEDS ORDERED: IBUPROFEN 800 MG TAB PO ONE (17:13)
== END 2021-07-16 18:07 | disposition home or self-care (01) ==
LOC: ED 12:42
DX: S16.1XXA Strain of muscle, fascia and tendon at neck level, initial encounter (principal); S40.011A Contusion of right shoulder, initial encounter; S09.90XA Unspecified injury of head, initial encounter; I10 Essential (primary) hypertension; J45.909 Unspecified asthma, uncomplicated; W01.198A Fall on same level from slipping, tripping and stumbling with subsequent striking against other object, initial encounter; Y93.89 Activity, other specified; Y92.89 Other specified places as the place of occurrence of the external cause; Y99.8 Other external cause status
CPT/HCPCS: 36415; 70450; 71046; 72125; 80053; 84484; 85027; 85610; 85730; 99284

== ENCOUNTER 2022-05-17 22:09 | Inpatient (IN) | payer MEDICAID, MEDICARE ==
[2022-05-18] MEDS ORDERED: SODIUM CHLORIDE 0.9% 1000 ML 1,000 ML IV ONE (00:02)
[2022-05-18] MEDS ORDERED: ONDANSETRON 4 MG/2 ML INJ IV ONE (00:04)
--- NOTE | 2022-05-18 00:44 | XRay Report ---
. XR chest 1V ap INDICATION / CLINICAL INFORMATION: Altered Mental Status. COMPARISON: 07/16/2021 FINDINGS: SUPPORT DEVICES: None. HEART /PULMONARY VASCULATURE: No significant abnormality. LUNGS / PLEURA: No acute pulmonary or pleural abnormality. No pneumothorax. ADDITIONAL FINDINGS: No significant additional findings. IMPRESSION: 1. No acute findings. Signer Name: Jerry Monsivais MD Signed: 05/18/2022 12:40 AM Workstation Name: [id number]
[2022-05-18 01:14] LABS: Alanine Aminotransferase 16 units/L (7-56); Albumin 4.7 g/dL (3.9-5); BUN/Creatinine Ratio 19; Blood Urea Nitrogen 17 mg/dL (7-17); Calcium 9.1 mg/dL (8.4-10.2); Hemolysis Index 7
[2022-05-18] MEDS ORDERED: POTASSIUM CHLORIDE ER 20 MEQ TAB PO ONE (01:31)
[2022-05-18 01:47] LABS: Basophils % (Auto) 0.3 % (0.0-1.8); Eosinophils % (Auto) 0.5 % (0.0-4.3); Hematocrit 37.4 % (30.3-42.9); Hemoglobin 12.3 gm/dl (10.1-14.3); Lymphocytes # (Auto) 1.6 K/mm3 (1.2-5.4); Lymphocytes % (Auto) 17.5 % (13.4-35.0); Mean Corpuscular HGB Conc 33 % (30-34); Mean Corpuscular Volume 82 fl (79-97); Monocytes # (Auto) 0.7 K/mm3 (0.0-0.8); Monocytes % (Auto) 8.1 % (0.0-7.3); Platelet Count 220 K/mm3 (140-440); Red Blood Count 4.57 M/mm3 (3.65-5.03); Red Cell Distribution Width 14.5 % (13.2-15.2)
[2022-05-18] MEDS ORDERED: POTASSIUM CHLORIDE 20 MEQ PACKET FEEDTUBE ONE (01:51)
[2022-05-18 01:55] LABS: INR 1.01 (0.87-1.13)
[2022-05-18] MEDS: POTASSIUM CHLORIDE 10 MEQ 10 MEQ/100 ML BAG IV SCH ×3 (02:00→10:09)
--- NOTE | 2022-05-18 03:53 | Emergency Department Report ---
ED General Adult HPI - General Chief complaint: Weakness Stated complaint: N/V WEAKNESS PUI?: No Time Seen by Provider: 05/17/22 23:48 Source: patient, EMS Mode of arrival: Stretcher Limitations: No Limitations - History of Present Illness Initial comments: Went to the beach today. Now feeling hot with nausea and vomiting. -: Gradual, hour(s) Radiation: non-radiation Associated Symptoms: denies other symptoms, nausea/vomiting, weakness. denies: confusion, chest pain, cough, headaches, loss of appetite, malaise, shortness of breath Treatments Prior to Arrival: none - Related Data Home Medications Medication Instructions Recorded Confirmed Last Taken Atorvastatin [Lipitor] 80 mg PO DAILY 05/05/18 09/29/19 Unknown Previous Rx's Medication Instructions Recorded Last Taken Type Chlorthalidone [Thalitone] 12.5 mg PO QDAY #30 tablet 11/21/18 Unknown Rx Naproxen [Naprosyn] 500 mg PO BID #20 tablet 07/16/21 Unknown Rx Allergies Allergy/AdvReac Type Severity Reaction Status Date / Time No Known Allergies Allergy Verified 03/11/19 17:08 ED Review of Systems ROS: Stated complaint: N/V WEAKNESS Other details as noted in HPI Constitutional: denies: chills, fever Eyes: denies: eye pain, eye discharge, vision change ENT: denies: ear pain, throat pain Respiratory: denies: cough, shortness of breath, wheezing Cardiovascular: denies: chest pain, palpitations Endocrine: no symptoms reported Gastrointestinal: denies: abdominal pain, nausea, diarrhea Genitourinary: denies: urgency, dysuria, discharge Musculoskeletal: denies: back pain, joint swelling, arthralgia Skin: denies: rash, lesions Neurological: denies: headache, weakness, paresthesias Psychiatric: denies: anxiety, depression Hematological/Lymphatic: denies: easy bleeding, easy bruising ED Past Medical Hx - Past Medical History Hx Hypertension: Yes (10/11/1989) Hx Arthritis: Yes Hx Psychiatric Treatment: Yes Hx Asthma: Yes Hx HIV: No Additional medical history: high cholesterol. Autonomic dysfunction. Hyponatremia - Surgical History Past Surgical History?: Yes Additional Surgical History: Cardiac cath x 2, Tubal Ligation - Social History Smoking Status: Never Smoker Substance Use Type: None - Medications Home Medications: Home Medications Medication Instructions Recorded Confirmed Last Taken Type Atorvastatin [Lipitor] 80 mg PO DAILY 05/05/18 09/29/19 Unknown History Chlorthalidone [Thalitone] 12.5 mg PO QDAY #30 tablet 11/21/18 09/29/19 Unknown Rx Naproxen [Naprosyn] 500 mg PO BID #20 tablet 07/16/21 Unknown Rx ED Physical Exam - General Limitations: No Limitations General appearance: other (weak) - Head Head exam: Present: atraumatic, normocephalic - Eye Eye exam: Present: normal appearance - ENT ENT exam: Present: mucous membranes moist - Neck Neck exam: Present: normal inspection - Respiratory Respiratory exam: Present: normal lung sounds bilaterally. Absent: respiratory distress - Cardiovascular Cardiovascular Exam: Present: regular rate, normal rhythm. Absent: systolic murmur, diastolic murmur, rubs, gallop - GI/Abdominal GI/Abdominal exam: Present: soft, normal bowel sounds - Extremities Exam Extremities exam: Present: normal inspection - Back Exam Back exam: Present: normal inspection - Neurological Exam Neurological exam: Present: alert, oriented X3 - Psychiatric Psychiatric exam: Present: normal affect, normal mood - Skin Skin exam: Present: warm, dry, intact, normal color. Absent: rash ED Course Vital Signs 05/17/22 22:16 Temperature 98 F Pulse Rate 95 H Respiratory 18 Rate Blood Pressure 148/76 O2 Sat by Pulse 97 Oximetry ED Medical Decision Making - Lab Data Result diagrams: 05/18/22 00:31 05/18/22 00:31 Critical care attestation.: If time is entered above; I have spent that time in minutes in the direct care of this critically ill patient, excluding procedure time. ED Disposition Clinical Impression: Weakness, Nausea and vomiting, Hypokalemia Disposition: ADMITTED INPATIENT Is pt being admited?: No Does the pt Need Aspirin: No Condition: Stable Referrals: ADILENE CARBALLO MD [Primary Care Provider] - 3-5 Days
[2022-05-18] MEDS ORDERED: MAGNESIUM OXIDE 400 MG TAB PO ONE ×2 (04:31→10:00)
[2022-05-18] MEDS ORDERED: MORPHINE 4 MG/1 ML INJ IV PRN (04:40)
[2022-05-18] MEDS ORDERED: ACETAMINOPHEN 325 MG TAB PO PRN (04:40)
[2022-05-18] MEDS ORDERED: MAGNESIUM HYDROXIDE (MOM) ORAL LIQD UDC PO PRN (04:40)
[2022-05-18] MEDS ORDERED: MORPHINE 2 MG/1 ML INJ IV PRN (04:40)
[2022-05-18] MEDS ORDERED: ONDANSETRON 4 MG/2 ML INJ IV PRN (04:40)
[2022-05-18] MEDS ORDERED: SODIUM CHLORIDE 0.9% 1000 ML 1,000 ML IV SCH (04:45)
--- NOTE | 2022-05-18 04:50 | History and Physical Report ---
History of Present Illness Date of examination: 05/18/22 Date of admission: 05/18/22 Chief complaint: Nausea and Vomiting History of present illness: 76-year-old female with known history of hypertension, atrial fibrillation, history of asthma and hyperlipidemia presents to the emergency room today complaining of generalized weakness, nausea and vomiting. Symptoms have been ongoing for the past few days. Patient denies any fever or chills, no chest pain or shortness of breath, no headache or dizziness and no diaphoresis. She denies any abdominal pain, no hematuria or dysuria. Patient denies any sick contacts and no recent travel. Denies any contact with anyone with COVID-19. She has been fully vaccinated against COVID-19. Work-up in the emergency room today, significant findings were that of hypokalemia of 2.4. Chest x-ray was unremarkable. EKG shows A. fib-rate controlled. Patient to be admitted for hydration and replacement of potassium. Past History Past Medical History: arthritis, hypertension, other (high cholesterol. Autonomic dysfunction. Hyponatremia,Asthma) Past Surgical History: Other (Cardiac cath x 2, Tubal Ligation) Social history: no significant social history Family history: no significant family history Medications and Allergies Allergies Allergy/AdvReac Type Severity Reaction Status Date / Time No Known Allergies Allergy Verified 03/11/19 17:08 Home Medications Medication Instructions Recorded Confirmed Last Taken Type Atorvastatin [Lipitor] 80 mg PO DAILY 05/05/18 09/29/19 Unknown History Chlorthalidone [Thalitone] 12.5 mg PO QDAY #30 tablet 11/21/18 09/29/19 Unknown Rx Naproxen [Naprosyn] 500 mg PO BID #20 tablet 07/16/21 Unknown Rx Active Meds: Active Medications Acetaminophen (Acetaminophen 325 Mg Tab) 650 mg PO Q4H PRN PRN Reason: Pain MILD(1-3)/Fever >100.5/BACH Heparin Sodium (Porcine) (Heparin 5,000 Unit/1 Ml Vial) 5,000 unit SUB-Q Q8HR PATRICIA Potassium Chloride (Kcl 10meq/100ml) 10 meq in 100 mls @ 100 mls/hr IV Q1H PATRICIA Stop: 05/18/22 05:59 Last Admin: 05/18/22 02:00 Dose: 100 mls/hr Sodium Chloride (Nacl 0.9% 1000 Ml) 1,000 mls @ 125 mls/hr IV DIRECT PATRICIA Magnesium Hydroxide (Magnesium Hydroxide (Mom) Oral Liqd Udc) 30 ml PO Q4H PRN PRN Reason: Constipation Morphine Sulfate (Morphine 2 Mg/1 Ml Inj) 2 mg IV Q4H PRN PRN Reason: Pain, Moderate (4-6) Morphine Sulfate (Morphine 4 Mg/1 Ml Inj) 4 mg IV Q4H PRN PRN Reason: Pain , Severe (7-10) Ondansetron HCl (Ondansetron 4 Mg/2 Ml Inj) 4 mg IV Q8H PRN PRN Reason: Nausea And Vomiting Sodium Chloride (Sodium Chloride 0.9% 10 Ml Flush Syringe) 10 ml IV BID PATRICIA Sodium Chloride (Sodium Chloride 0.9% 10 Ml Flush Syringe) 10 ml IV PRN PRN PRN Reason: LINE FLUSH Review of Systems Constitutional: weakness, no fever, no chills Ears, nose, mouth and throat: no nasal congestion, no sore throat Cardiovascular: no chest pain, no palpitations Respiratory: no cough, no shortness of breath Gastrointestinal: nausea, vomiting, no abdominal pain, no diarrhea Genitourinary Female: no flank pain, no dysuria, no hematuria Musculoskeletal: no neck pain, no low back pain Integumentary: no rash, no pruritis Neurological: no headaches, no confusion Psychiatric: no anxiety, no depression Endocrine: no polyphagia, no polydipsia, no polyuria, no nocturia Exam - Constitutional Vitals: Temp Pulse Resp BP Pulse Ox 98 F 95 H 18 148/76 97 05/17/22 22:16 05/17/22 22:16 05/17/22 22:16 05/17/22 22:16 05/17/22 22:16 General appearance: Present: no acute distress, well-nourished, other (Dry Oral Mucosa) - EENT Eyes: Present: PERRL, EOM intact. Absent: scleral icterus ENT: hearing intact, clear oral mucosa, dentition normal - Neck Neck: Present: supple, normal ROM - Respiratory Respiratory effort: normal Respiratory: bilateral: CTA - Cardiovascular Rhythm: irregularly irregular Heart Sounds: Present: S1 & S2. Absent: gallop, systolic murmur, diastolic murmur, rub, click - Extremities Extremities: no ischemia, pulses intact, pulses symmetrical, No edema, normal temperature, normal color, Full ROM Peripheral Pulses: within normal limits - Abdominal General gastrointestinal: Present: soft, non-tender, non-distended, normal bowel sounds. Absent: mass - Integumentary Integumentary: Present: clear, warm, dry, normal turgor. Absent: rash - Musculoskeletal Musculoskeletal: strength equal bilaterally - Psychiatric Psychiatric: appropriate mood/affect, intact judgment & insight, memory intact, cooperative - Neurologic Neurologic: CNII-XII intact, no focal deficits, moves all extremities HEART Score - HEART Score Troponin: Troponin T < 0.010 ng/mL (0.00-0.029) 05/18/22 00:31 Results - Labs CBC & Chem 7: 05/18/22 00:05/18/22 00:31 Labs: Abnormal lab results 05/18/22 05/18/22 05/18/22 Range/Units 00: 00:31 00:31 MCH 27 L (28-32) pg Barry % (Auto) 8.1 H (0.0-7.3) % Seg Neutrophils % 73.6 H (40.0-70.0) % Sodium 122 L (137-145) mmol/L Potassium 2.5 L* (3.6-5.0) mmol/L Chloride 81.3 L (98-107) mmol/L Glucose 180 H (65-100) mg/dL Lactic Acid 2.40 H* (0.7-2.0) mmol/L Magnesium (1.7-2.3) mg/dL Total Creatine Kinase (30-135) units/L Salicylates (2.8-20.0) mg/dL Acetaminophen (10.0-30.0) ug/mL 05/18/22 05/18/22 05/18/22 Range/Units 00: 00: 00:31 MCH (28-32) pg Barry % (Auto) (0.0-7.3) % Seg Neutrophils % (40.0-70.0) % Sodium (137-145) mmol/L Potassium (3.6-5.0) mmol/L Chloride (98-107) mmol/L Glucose (65-100) mg/dL Lactic Acid (0.7-2.0) mmol/L Magnesium (1.7-2.3) mg/dL Total Creatine Kinase 155 H (30-135) units/L Salicylates < 0.3 L (2.8-20.0) mg/dL Acetaminophen 5.0 L (10.0-30.0) ug/mL 05/18/22 Range/Units 03:42 MCH (28-32) pg Barry % (Auto) (0.0-7.3) % Seg Neutrophils % (40.0-70.0) % Sodium (137-145) mmol/L Potassium (3.6-5.0) mmol/L Chloride (98-107) mmol/L Glucose (65-100) mg/dL Lactic Acid (0.7-2.0) mmol/L Magnesium 1.40 L (1.7-2.3) mg/dL Total Creatine Kinase (30-135) units/L Salicylates (2.8-20.0) mg/dL Acetaminophen (10.0-30.0) ug/mL Assessment and Plan Assessment: 1. Generalized weakness 2. Nausea and vomiting 3. Hypokalemia 4. Atrial fibrillation-rate controlled 5. History of coronary artery disease Plan: 1. Patient admitted and placed on IV fluid 2. Potassium will be repleted and will monitor chemistry 3. We will resume routine home medications once reconciled 4. We will monitor EKG and monitor chemistry. DVT Prophylaxis:SQ Heparin Code Status: Full Code
[2022-05-18] MEDS ORDERED: POTASSIUM CHLORIDE ER 20 MEQ TAB PO NR (08:00)
--- NOTE | 2022-05-18 08:43 | Event Note ---
Date: 05/18/22 This is a follow-up from an admission earlier this morning. Patient seen and examined. Potassium has been ordered and nephrology consulted for severe hypokalemia. We will continue to plan as outlined in the H&P. Total visit time equals 32 minutes with greater than 50% spent on coordination of care and counseling.
[2022-05-18] MEDS: HEPARIN 5,000 UNIT/1 ML VIAL SUB-Q SCH ×3 (10:08→22:26)
--- NOTE | 2022-05-18 10:12 | Electrocardiograph Report ---
[facility] Test Date: 2022-05-18 Test Time: 02:28:16 Pat Name: CHILO MELARA Department: Room: A380 1 Gender: F Electrical Intern: AME : 1945 Requested By: NEPTALI SOLITARIO Order Number: [id number] Reading MD: Han Tavarse Measurements Intervals [place] Rate: 83 P: IN: QRS: 1 QRSD: 96 T: -8 QT: 423 QTc: 499 Interpretive Statements Baseline artifacts noted. S.R with APC's noted. Low voltage, precordial leads Probable LVH with secondary repol abnrm No previous ECG available for comparison Electronically Signed On 05-18-2022 10:11:27 EDT by Han Tavares
[2022-05-18 12:29] LABS: BUN/Creatinine Ratio 15; Blood Urea Nitrogen 12 mg/dL (7-17); Calcium 8.9 mg/dL (8.4-10.2); Hemolysis Index 1
--- NOTE | 2022-05-18 12:50 | Consultation ---
History of Present Illness - Reason for Consult Consult date: 05/18/22 - History of Present Illness 76yr F admitted c/o Generalized weakness/N/V & labs revealed severe HyoK & HypoNa hence Renal Consult Past History Past Medical History: arthritis, hypertension, other (high cholesterol. Autonomic dysfunction. Hyponatremia,Asthma) Past Surgical History: Other (Cardiac cath x 2, Tubal Ligation) Social history: no significant social history Family history: no significant family history Medications and Allergies Allergies Allergy/AdvReac Type Severity Reaction Status Date / Time No Known Allergies Allergy Verified 03/11/19 17:08 Home Medications Medication Instructions Recorded Confirmed Last Taken Type Atorvastatin [Lipitor] 80 mg PO DAILY 05/05/18 09/29/19 Unknown History Chlorthalidone [Thalitone] 12.5 mg PO QDAY #30 tablet 11/21/18 09/29/19 Unknown Rx Naproxen [Naprosyn] 500 mg PO BID #20 tablet 07/16/21 Unknown Rx Active Meds: Active Medications Acetaminophen (Acetaminophen 325 Mg Tab) 650 mg PO Q4H PRN PRN Reason: Pain MILD(1-3)/Fever >100.5/BACH Heparin Sodium (Porcine) (Heparin 5,000 Unit/1 Ml Vial) 5,000 unit SUB-Q Q8HR PATRICIA Last Admin: 05/18/22 10:08 Dose: Not Given Sodium Chloride (Nacl 0.9% 1000 Ml) 1,000 mls @ 125 mls/hr IV DIRECT PATRICIA Last Admin: 05/18/22 10:07 Dose: 125 mls/hr Magnesium Hydroxide (Magnesium Hydroxide (Mom) Oral Liqd Udc) 30 ml PO Q4H PRN PRN Reason: Constipation Morphine Sulfate (Morphine 2 Mg/1 Ml Inj) 2 mg IV Q4H PRN PRN Reason: Pain, Moderate (4-6) Morphine Sulfate (Morphine 4 Mg/1 Ml Inj) 4 mg IV Q4H PRN PRN Reason: Pain , Severe (7-10) Ondansetron HCl (Ondansetron 4 Mg/2 Ml Inj) 4 mg IV Q8H PRN PRN Reason: Nausea And Vomiting Potassium Chloride (Potassium Chloride Er 20 Meq Tab) 40 meq PO ONCE@0800 NR Stop: 05/18/22 13:00 Last Admin: 05/18/22 10:06 Dose: 40 meq Sodium Chloride (Sodium Chloride 0.9% 10 Ml Flush Syringe) 10 ml IV BID PATRICIA Last Admin: 05/18/22 10:07 Dose: 10 ml Sodium Chloride (Sodium Chloride 0.9% 10 Ml Flush Syringe) 10 ml IV PRN PRN PRN Reason: LINE FLUSH Review of Systems Constitutional: weakness, no fever, no chills Cardiovascular: no chest pain, no palpitations, no edema Respiratory: no cough, no shortness of breath Gastrointestinal: nausea, vomiting, no abdominal pain, no diarrhea, no constipation Neurological: no paralysis Exam - Vital Signs Vital signs: Vital Signs Temp Pulse Resp BP Pulse Ox 98 F 95 H 18 148/76 97 05/17/22 22:16 05/17/22 22:16 05/17/22 22:16 05/17/22 22:16 05/17/22 22:16 - General Appearance General appearance: well-nourished EENT: PERRL Neck: Present: neck supple. Absent: JVD/HJR Respiratory: Clear to Ascultation Heart: regular, S1S2 Gastrointestinal: Present: other (Soft). Absent: tenderness Integumentary: no rash, warm and dry Neurologic: no focal deficit, alert and oriented x3, reflexes 2+ and symmetric Psychiatric: mood/affect appropriate Results - Lab Results 05/18/22 00:31 05/18/22 11:12 Most recent lab results Calcium 8.9 mg/dL (8.4-10.2) 05/18/22 11:12 Magnesium 1.60 mg/dL (1.7-2.3) L 05/18/22 09:24 Assessment and Plan Electrolyte Imbalance (HypoK, HypoMg, HypoNa) - Likely 2/2 thiazide diuretic - Replenish lytes IV & f/u levels HTN - Review & adjust meds as necessary, avoid thiazide diuretics A Fib /CAD - F/u per Cardiology Thanks very much, will f/u with you
[2022-05-18] MEDS ORDERED: MAGNESIUM SULFATE 2 GM/50 ML BAG IV ONE (14:00)
[2022-05-18] MEDS: NACL 0.9%/KCL 40 MEQ 40 MEQ/1,000 ML BAG IV SCH (14:41)
[2022-05-19] MEDS: HEPARIN 5,000 UNIT/1 ML VIAL SUB-Q SCH ×2 (05:31→15:34)
[2022-05-19 06:21] LABS: Basophils % (Auto) 0.4 % (0.0-1.8); Eosinophils # (Auto) 0.2 K/mm3 (0.0-0.4); Eosinophils % (Auto) 3.3 % (0.0-4.3); Hematocrit 33.6 % (30.3-42.9); Hemoglobin 10.9 gm/dl (10.1-14.3); Lymphocytes # (Auto) 2.8 K/mm3 (1.2-5.4); Lymphocytes % (Auto) 43.3 % (13.4-35.0); Mean Corpuscular HGB Conc 33 % (30-34); Mean Corpuscular Volume 83 fl (79-97); Monocytes # (Auto) 0.7 K/mm3 (0.0-0.8); Monocytes % (Auto) 10.9 % (0.0-7.3); Platelet Count 213 K/mm3 (140-440); Red Blood Count 4.04 M/mm3 (3.65-5.03); Red Cell Distribution Width 15.2 % (13.2-15.2)
[2022-05-19 06:33] LABS: BUN/Creatinine Ratio 18; Blood Urea Nitrogen 14 mg/dL (7-17); Calcium 8.4 mg/dL (8.4-10.2); Hemolysis Index 7
[2022-05-19] MEDS: NACL 0.9%/KCL 40 MEQ 40 MEQ/1,000 ML BAG IV SCH (09:40)
--- NOTE | 2022-05-19 09:40 | Progress Note ---
Assessment and Plan Assessment and plan: 1. Generalized weakness 2. Nausea and vomiting 3. Hypokalemia 4. Atrial fibrillation-rate controlled 5. History of coronary artery disease Plan: 1. Patient admitted and placed on IV fluid 2. Potassium will be repleted and will monitor chemistry 3. We will resume routine home medications once reconciled 4. We will monitor EKG and monitor chemistry. DVT Prophylaxis:SQ Heparin Code Status: Full Code Hospitalist Physical - Constitutional Vitals: Temp Pulse Resp BP Pulse Ox 97.8 F 76 20 130/51 93 05/18/22 16:44 05/18/22 20:16 05/18/22 20:16 05/18/22 20:16 05/18/22 20:16 General appearance: Present: no acute distress, well-nourished, other (Dry Oral Mucosa) HEART Score - HEART Score Troponin: Troponin T < 0.010 ng/mL (0.00-0.029) 05/18/22 00:31 Results - Labs CBC & Chem 7: 05/19/22 05:49 05/19/22 05:49 Labs: Laboratory Last Values WBC 6.5 K/mm3 (4.5-11.0) 05/19/22 05:49 RBC 4.04 M/mm3 (3.65-5.03) 05/19/22 05:49 Hgb 10.9 gm/dl (10.1-14.3) 05/19/22 05:49 Hct 33.6 % (30.3-42.9) 05/19/22 05:49 MCV 83 fl (79-97) 05/19/22 05:49 MCH 27 pg (28-32) L 05/19/22 05:49 MCHC 33 % (30-34) 05/19/22 05:49 RDW 15.2 % (13.2-15.2) 05/19/22 05:49 Plt Count 213 K/mm3 (140-440) 05/19/22 05:49 Lymph % (Auto) 43.3 % (13.4-35.0) H 05/19/22 05:49 [place] % (Auto) 10.9 % (0.0-7.3) H 05/19/22 05:49 Eos % (Auto) 3.3 % (0.0-4.3) 05/19/22 05:49 Baso % (Auto) 0.4 % (0.0-1.8) 05/19/22 05:49 Lymph # (Auto) 2.8 K/mm3 (1.2-5.4) 05/19/22 05:49 [place] # (Auto) 0.7 K/mm3 (0.0-0.8) 05/19/22 05:49 Eos # (Auto) 0.2 K/mm3 (0.0-0.4) 05/19/22 05:49 Baso # (Auto) 0.0 K/mm3 (0.0-0.1) 05/19/22 05:49 Seg Neutrophils % 42.1 % (40.0-70.0) 05/19/22 05:49 Seg Neutrophils # 2.7 K/mm3 (1.8-7.7) 05/19/22 05:49 PT 14.7 Sec. (12.2-14.9) 05/18/22 00:31 INR 1.01 (0.87-1.13) 05/18/22 00:31 Sodium 137 mmol/L (137-145) 05/19/22 05:49 Potassium 4.1 mmol/L (3.6-5.0) 05/19/22 05:49 Chloride 100.7 mmol/L (98-107) 05/19/22 05:49 Carbon Dioxide 26 mmol/L (22-30) 05/19/22 05:49 Anion Gap 14 mmol/L 05/19/22 05:49 BUN 14 mg/dL (7-17) 05/19/22 05:49 Creatinine 0.8 mg/dL (0.6-1.2) 05/19/22 05:49 Estimated GFR > 60 ml/min 05/19/22 05:49 BUN/Creatinine Ratio 18 % 05/19/22 05:49 Glucose 115 mg/dL (65-100) H 05/19/22 05:49 POC Glucose 128 mg/dL (70-105) H 05/19/22 07:44 Lactic Acid 1.40 mmol/L (0.7-2.0) 05/18/22 01:44 Calcium 8.4 mg/dL (8.4-10.2) 05/19/22 05:49 Phosphorus 2.50 mg/dL (2.5-4.5) 05/19/22 05:49 Magnesium 2.00 mg/dL (1.7-2.3) 05/19/22 05:49 Total Bilirubin 0.80 mg/dL (0.1-1.2) 05/18/22 00:31 AST 27 units/L (5-40) 05/18/22 00:31 ALT 16 units/L (7-56) 05/18/22 00:31 Alkaline Phosphatase 125 units/L (35-129) 05/18/22 00:31 Total Creatine Kinase 155 units/L (30-135) H 05/18/22 00:31 Troponin T < 0.010 ng/mL (0.00-0.029) 05/18/22 00:31 Total Protein 7.4 g/dL (6.3-8.2) 05/18/22 00:31 Albumin 4.7 g/dL (3.9-5) 05/18/22 00:31 Albumin/Globulin Ratio 1.7 % 05/18/22 00:31 Salicylates < 0.3 mg/dL (2.8-20.0) L 05/18/22 00:31 Acetaminophen 5.0 ug/mL (10.0-30.0) L 05/18/22 00:31 Gallo/IV: Voiding Method Toilet Active Medications - Current Medications Current Medications: Generic Name Dose Route Start Last Admin Trade Name Freq PRN Reason Stop Dose Admin Acetaminophen 650 mg 05/18/22 04:40 Acetaminophen 325 Mg Tab PO Q4H PRN Pain MILD(1-3)/Fever >100.5/BACH Heparin Sodium (Porcine) 5,000 unit 05/18/22 06:00 05/19/22 05:31 Heparin 5,000 Unit/1 Ml Vial SUB-Q 5,000 unit Q8HR PATRICIA Administration Potassium Chloride/Sodium Chloride 40 meq in 1,000 mls @ 100 mls/hr 05/18/22 14:00 05/18/22 14:41 Ns/Kcl 40meq IV 100 mls/hr DIRECT PATRICIA Administration Magnesium Hydroxide 30 ml 05/18/22 04:40 Magnesium Hydroxide (Mom) Oral Liqd Udc PO Q4H PRN Constipation Morphine Sulfate 2 mg 05/18/22 04:40 Morphine 2 Mg/1 Ml Inj IV Q4H PRN Pain, Moderate (4-6) Morphine Sulfate 4 mg 05/18/22 04:40 Morphine 4 Mg/1 Ml Inj IV Q4H PRN Pain , Severe (7-10) Ondansetron HCl 4 mg 05/18/22 04:40 Ondansetron 4 Mg/2 Ml Inj IV Q8H PRN Nausea And Vomiting Sodium Chloride 10 ml 05/18/22 10:00 05/18/22 22:31 Sodium Chloride 0.9% 10 Ml Flush Syringe IV 10 ml BID PATRICIA Administration Sodium Chloride 10 ml 05/18/22 04:40 Sodium Chloride 0.9% 10 Ml Flush Syringe IV PRN PRN LINE FLUSH
[2022-05-19] MEDS ORDERED: CHLORTHALIDONE 25 MG TAB PO SCH (10:00)
--- NOTE | 2022-05-19 13:19 | Progress Note ---
Assessment and Plan Electrolyte Imbalance (HypoK, HypoMg, HypoNa) -Resolved s/p supplements. D/c IVF, avoid Thiazide Diuretics HTN - F/u on meds A Fib /CAD - F/u per Cardiology Will sign off. Thanks Subjective Date of service: 05/19/22 Interval history: No new complaint Objective - Vital Signs Vital signs: Vital Signs - 12hr 05/19/22 10:59 Temperature 98.0 F Pulse Rate 72 Respiratory 22 Rate Blood Pressure 170/60 O2 Sat by Pulse 98 Oximetry - General Appearance General appearance: other (Awake & responsive) EENT: PERRL Neck: no JVD Respiratory: Present: Clear to Ascultation Cardiology: regular, S1S2 Gastrointestinal: normal Neurologic: alert and oriented x3 Psychiatric: mood/affect appropriate - Lab 05/19/22 05:49 05/19/22 05:49 Most recent lab results Calcium 8.4 mg/dL (8.4-10.2) 05/19/22 05:49 Phosphorus 2.50 mg/dL (2.5-4.5) 05/19/22 05:49 Magnesium 2.00 mg/dL (1.7-2.3) 05/19/22 05:49 Medications & Allergies - Medications Allergies/Adverse Reactions: Allergies No Known Allergies Allergy (Verified 03/11/19 17:08) Home Medications: Home Medications Medication Instructions Recorded Confirmed Last Taken Type Atorvastatin [Lipitor] 80 mg PO DAILY 05/05/18 05/18/22 Unknown History Chlorthalidone [Thalitone] 12.5 mg PO QDAY #30 tablet 11/21/18 05/18/22 Unknown Rx Naproxen [Naprosyn] 500 mg PO BID #20 tablet 07/16/21 05/18/22 Unknown Rx Active Medications: Generic Name Dose Route Start Last Admin Trade Name Freq PRN Reason Stop Dose Admin Acetaminophen 650 mg 05/18/22 04:40 Acetaminophen 325 Mg Tab PO Q4H PRN Pain MILD(1-3)/Fever >100.5/BACH Chlorthalidone 12.5 mg 05/19/22 10:00 05/19/22 11:39 Chlorthalidone 25 Mg Tab PO 12.5 mg QDAY PATRICIA Administration Heparin Sodium (Porcine) 5,000 unit 05/18/22 06:00 05/19/22 05:31 Heparin 5,000 Unit/1 Ml Vial SUB-Q 5,000 unit Q8HR PATRICIA Administration Potassium Chloride/Sodium Chloride 40 meq in 1,000 mls @ 100 mls/hr 05/18/22 14:00 05/19/22 09:40 Ns/Kcl 40meq IV 100 mls/hr DIRECT PATRICIA Administration Magnesium Hydroxide 30 ml 05/18/22 04:40 Magnesium Hydroxide (Mom) Oral Liqd Udc PO Q4H PRN Constipation Morphine Sulfate 2 mg 05/18/22 04:40 Morphine 2 Mg/1 Ml Inj IV Q4H PRN Pain, Moderate (4-6) Morphine Sulfate 4 mg 05/18/22 04:40 Morphine 4 Mg/1 Ml Inj IV Q4H PRN Pain , Severe (7-10) Ondansetron HCl 4 mg 05/18/22 04:40 Ondansetron 4 Mg/2 Ml Inj IV Q8H PRN Nausea And Vomiting Sodium Chloride 10 ml 05/18/22 10:00 05/19/22 11:40 Sodium Chloride 0.9% 10 Ml Flush Syringe IV 10 ml BID PATRICIA Administration Sodium Chloride 10 ml 05/18/22 04:40 Sodium Chloride 0.9% 10 Ml Flush Syringe IV PRN PRN LINE FLUSH
--- NOTE | 2022-05-19 14:29 | Discharge Summary ---
Providers - Providers Date of Admission: 05/18/22 04:41 Date of discharge: 05/19/22 Attending physician: BRIAN SAHU 05/18/22 07:54 Consult to Physician [CONS] Routine Comment: Consulting Provider: KELIN SHANNON Physician Instructions: Reason For Exam: hypokalemia 05/18/22 16:56 Physical Therapy Evaluation and Treat [CONS] Routine Comment: Reason For Exam: Eval and Treat 05/18/22 16:57 Occupational Therapy Evaluate and Treat [CONS] Routine Comment: Reason For Exam: Eval and treat Primary care physician: ADILENE CARBALLO Hospitalization Reason for admission: Condition: Stable Hospital course: 1. Generalized weakness 2. Nausea and vomiting 3. Hypokalemia 4. Atrial fibrillation-rate controlled 5. History of coronary artery disease Final Discharge Diagnosis (Prints w/discharge instructions): Generalized weakness improved. Nausea vomiting resolved. Hypokalemia resolved. A. fib rate controlled. History of coronary artery disease Time spent for discharge: 35 min Core Measure Documentation - Palliative Care Palliative Care/ Comfort Measures: Not Applicable - Core Measures Any of the following diagnoses?: none Exam - Constitutional Vitals: Temp Pulse Resp BP Pulse Ox 98.0 F 72 22 170/60 98 05/19/22 10:59 05/19/22 10:59 05/19/22 10:59 05/19/22 10:59 05/19/22 10:59 Plan Activity: advance as tolerated, fall precautions Diet: regular Additional Instructions: Avoid diuretics[recommended by insurance biller]. If you have worsening symptoms contact MD or go to the nearest emergency room as needed. Advised to follow primary care physician, insurance biller per schedule Follow up with: ADILENE CARBALLO MD [Primary Care Provider] - 3-5 Days KELLY OMER MD [Staff Physician] - 7 Days Prescriptions: Magnesium Oxide [Mag-Ox] 400 mg PO QDAY #10
[2022-05-19 17:23] VITALS: BP 160/53
== END 2022-05-19 18:04 | disposition home or self-care (01) | DRG 641 ==
LOC: ED 22:09 → INTOOBSV 05-18 04:41 → 3A 05-18 04:41 → OBSVTOIN 05-18 04:41
PROVIDERS: ADMIT Internal Medicine Geriatric Medicine; ATTEND Internal Medicine
DX: E87.6 Hypokalemia (principal); E87.1 Hypo-osmolality and hyponatremia; I48.91 Unspecified atrial fibrillation; E78.00 Pure hypercholesterolemia, unspecified; J45.909 Unspecified asthma, uncomplicated; I10 Essential (primary) hypertension; E78.5 Hyperlipidemia, unspecified; I25.10 Atherosclerotic heart disease of native coronary artery without angina pectoris; E83.42 Hypomagnesemia; M19.90 Unspecified osteoarthritis, unspecified site; Z98.51 Tubal ligation status; T50.2X5A Adverse effect of carbonic-anhydrase inhibitors, benzothiadiazides and other diuretics, initial encounter
CPT/HCPCS: 36415; 71045; 80048; 80053; 80320; 82140; 82550; 82962; 83735; 84100; 84484; 85025; 85610; 93005; G0378; J2704; G0480; J1644; J2405; J3475; J3480; J7030